=== PATIENT | male | born 1945 | race Caucasian/White ===

== ENCOUNTER 2017-04-10 20:35 | Inpatient (IN) ==
[2017-04-10] MEDS ORDERED: IOPAMIDOL 100 ML BOTTLE IJ ONE (20:36)
[2017-04-10] MEDS ORDERED: 0.9 % SODIUM CHLORIDE 1,000 ML IV ONE ×3 (20:45→22:35)
[2017-04-10] MEDS ORDERED: VANCOMYCIN 1,000 MG in 0.9 % SODIUM CHLORIDE 250 ML IV ONE (21:13)
[2017-04-10] MEDS ORDERED: LEVOFLOXACIN 500 MG/100 ML BAG IV ONE (21:13)
[2017-04-10 21:44] LABS: Basophils # (Auto) 0 K/mcL (0.0-0.3); Basophils % (Auto) 0.6 % (0.0-2.0); Eosinophils # (Auto) 0 K/mcL (0.0-0.7); Eosinophils % (Auto) 0.4 % (0.0-7.0); Granulocytes % (Auto) 60.7 % (38.0-78.0); Lymphocytes # (Auto) 1.2 K/mcL (1.5-4.8); Lymphocytes % (Auto) 22.8 % (15.5-49.0); Mean Corpuscular HGB Conc 33.4 g/dL (31.0-36.0); Mean Corpuscular Hemoglobin 28.7 pg (26.0-34.0); Monocytes # (Auto) 0.8 K/mcL (0.1-0.9); Monocytes % (Auto) 15.5 % (1.0-12.0); Platelet Count 157 K/mcL (140-440); RBC 4.85 M/mcL (4.50-5.90)
[2017-04-10 21:55] LABS: ALT/SGPT 40 U/l (0-40); Albumin/Globulin Ratio 1.2 (1.0-2.3); Alkaline Phosphatase 62 U/L (39-117); Blood Urea Nitrogen 24 mg/dl (8-23)
[2017-04-10] MEDS ORDERED: HYDROmorphone 2 MG/ML SYRINGE IV SCH (22:15)
[2017-04-10] MEDS ORDERED: HYDROmorphone 2 MG/ML SYRINGE ONE (22:15)
[2017-04-11] MEDS ORDERED: IPRATROPIUM/ALBUTEROL 3 ML AMPUL.NEB NEB ONE
--- NOTE | 2017-04-11 00:06 | Emergency Department Note ---
Fever HPI - General Chief Complaint: Fever Stated Complaint: Temp of 103.8 Time Seen by Provider: 04/10/17 20:39 Source: patient, family Mode of arrival: EMS Limitations: no limitations - History of Present Illness HPI Narrative: This 71-year-old male comes in via EMS with a couple day history of belly pain and "shakes". He notes a fever up to 104 this morning-103.8 here. Headache for the last 1-2 weeks. The belly pain started in [facility] yesterday- he went to [facility] ER in [place] last night where they diagnosed him with a fever nonspecifically and send him home. He is having some nausea with 2 episodes of vomiting tonight-once in the ambulance. Notes normal bowel movements but he is short of breath - Related Data Home Medications Medication Instructions Recorded Confirmed allopurinol 300 mg tablet 150 mg PO QDAY tab 04/03/15 12/08/16 amlodipine 10 mg tablet 10 mg PO QDAY tab 04/03/15 12/08/16 aspirin 81 mg tablet,delayed 81 mg PO QDAY tab 04/03/15 12/08/16 release cholecalciferol (vitamin D3) 1,000 1,000 unit PO QDAY cap 04/03/15 12/08/16 unit capsule clotrimazole-betamethasone 1 See Dose Instructions TOPICAL 04/03/15 12/08/16 %-0.05 % topical cream .COMPLEX g fluocinonide 0.05 % topical cream 1 applic TOPICAL BID PRN g 04/03/15 12/08/16 glipizide ER 10 mg tablet, 10 mg PO BID tab 04/03/15 12/08/16 extended release 24 hr insulin syringe-needle U-100 1 mL See Dose Instructions .ROUTE 04/03/15 12/08/16 31 gauge x 15/64" .MEDSUPPLY losartan 100 mg tablet 100 mg PO QDAY tab 04/03/15 12/08/16 metoprolol tartrate 50 mg tablet 50 mg PO .COMPLEX tab 04/03/15 12/08/16 tadalafil 20 mg tablet See Dose Instructions PO QDAY PRN 04/03/15 12/08/16 tab vit C 150 mg-vit E 30 unit-lutein 1 cap PO QDAY cap 04/03/15 12/08/16 5 dg-kqlrfyal-dwxdl 3 150 mg capsule zinc 50 mg tablet 50 mg PO .COMPLEX tab 04/03/15 12/08/16 hydrochlorothiazide 12.5 mg tablet 25 mg PO QDAY 07/28/16 12/08/16 omeprazole 20 mg capsule,delayed 20 mg PO QDAY cap 07/28/16 12/08/16 release Previous Rx's Medication Instructions Recorded diclofenac 1 % topical gel 2 g TOPICAL TID #100 g 05/17/15 nitroglycerin 0.4 mg sublingual 0.4 mg SUBLINGUAL Q5-15MIN PRN #20 12/12/15 tablet tab furosemide 80 mg tablet 80 mg PO QDAY 90 Days 11/02/16 Levemir 100 unit/mL subcutaneous 150 unit SUB-Q QPM #50 ml NS 01/27/17 solution metformin 1,000 mg tablet 1,000 mg PO BID 90 Days 02/09/17 Novolin 70/30 100 unit/mL 265 unit SUB-Q QAM #100 ml NS 03/30/17 subcutaneous suspension hydrocodone 10 mg-acetaminophen 1 tab PO QID PRN 28 Days 03/30/17 325 mg tablet Allergies Allergy/AdvReac Type Severity Reaction Status Date / Time Penicillins Allergy Mild RASH Verified 12/08/16 08:55 lisinopril [LISINOPRIL] AdvReac Mild COUGH Verified 12/08/16 08:55 Review of Systems All systems ED: reviewed and negative except as stated. Fever PMH - Past Medical History Attestation: Yes: The following information was validated with the patient. Medical history: Reports: coronary artery disease, diabetes, hyperlipidemia, hypertension, kidney stones, myocardial infarction, other (Chronic low back pain , gout) Surgical history ED: Reports: angioplasty/stent, appendectomy, orthopedic, other (Foot, shoulder, back) - Social History smoking status: Former smoker Alcohol use: Reports: Occasionally Physical Exam Very ill-appearing obese elderly male. Normocephalic atraumatic. Conjunctive are clear sclerae white and nonicteric. No nasal discharge or congestion. Oropharynx is pink and moist. Neck is supple without lymphadenopathy or thyromegaly. Heart is regular rate and rhythm no murmurs appreciated. Lungs are clear to auscultation bilaterally but he is taking short breaths-not gasping but hyperventilating. He is able to answer questions but is not speaking in full sentences. Abdomen is soft diffusely tender nondistended except for the left lower quadrant which is more tender than the rest. No pedal edema. Scars noted right foot from previous surgery. +2 radial pulse. + 2 posterior tibialis pulse. Anxious. Alert oriented - General Limitations: no limitations Course Vital Signs Temperature 103.8 F H 04/10/17 20:36 Pulse Rate 94 H 04/10/17 20:36 Respiratory Rate 22 04/10/17 20:36 Blood Pressure 144/63 04/10/17 20:36 Pulse Oximetry (%) 95 04/10/17 20:36 Temperature 103.8 F H 04/10/17 20:36 Pulse Rate 89 04/10/17 22:32 Respiratory Rate 21 04/10/17 22:32 Blood Pressure 141/66 04/10/17 22:32 Pulse Oximetry (%) 100 04/10/17 22:32 Fever - Lab Data Lab results reviewed: Yes I reviewed the patient's lab results. Result diagrams: 04/10/17 20:43 04/10/17 20:43 Lab Results 04/10/17 04/10/17 04/10/17 Range/Units 20:43 20:43 20:43 WBC 5.3 (4.5-11.0) K/mcL RBC 4.85 (4.50-5.90) M/mcL Hgb 13.9 (13.5-16.5) g/dL Hct 41.7 (41.0-55.0) % POC Hct (41.0-55.0) % MCV 86.0 (80.0-100.0) fL MCH 28.7 (26.0-34.0) pg MCHC 33.4 (31.0-36.0) g/dL RDW 15.0 H (11.5-14.5) % Plt Count 157 (140-440) K/mcL MPV 8.6 (7.4-10.4) fL Gran % 60.7 (38.0-78.0) % Lymph % (Auto) 22.8 (15.5-49.0) % Isabella % (Auto) 15.5 H (1.0-12.0) % Eos % (Auto) 0.4 (0.0-7.0) % Baso % (Auto) 0.6 (0.0-2.0) % Gran # 3.2 (1.8-8.0) K/mcL Lymph # (Auto) 1.2 L (1.5-4.8) K/mcL Isabella # (Auto) 0.8 (0.1-0.9) K/mcL Eos # (Auto) 0 (0.0-0.7) K/mcL Baso # (Auto) 0 (0.0-0.3) K/mcL VBG Lactic Acid 2.1 (0.5-2.2) mmol/L POC Sodium (133-145) mmol/L Sodium 132 L (133-145) mmol/L POC Potassium (3.3-5.1) mmol/L Potassium 4.1 (3.3-5.1) mmol/L POC Chloride (96-108) mmol/L Chloride 92 L (96-108) mmol/L Carbon Dioxide 27 (22-30) mmol/L POC Total CO2 (22-30) mmol/L Anion Gap 13.0 (8-16) POC BUN (8-23) mg/dl BUN 24 H (8-23) mg/dl Creatinine 1.4 H (0.7-1.2) mg/dl POC Creatinine (0.7-1.2) mg/dl GFR Calculation 51 Glucose 90 (70-105) mg/dL POC Glucose (70-105) mg/dL Calcium 8.7 (8.6-10.4) mg/dl POC WB Ioniz Calcium (1.16-1.32) mmol/L Total Bilirubin 1.0 (0.0-1.0) mg/dL AST 46 H (0-37) U/l ALT 40 (0-40) U/l Alkaline Phosphatase 62 (39-117) U/L Troponin T (0-0.03) ng/ml C-Reactive Protein (0.0-0.8) mg/dl Total Protein 7.3 (5.9-8.4) gm/dL Albumin 4.0 (3.2-5.2) gm/dL Globulin 3.3 (2.2-3.7) gm/dL Albumin/Globulin Ratio 1.2 (1.0-2.3) Lipase (7-60) U/L Procalcitonin (<0.10) ng/mL 0804/10/17 04/10/17 Range/Units 20:43 20:43 20:43 WBC (4.5-11.0) K/mcL RBC (4.50-5.90) M/mcL Hgb (13.5-16.5) g/dL Hct (41.0-55.0) % POC Hct (41.0-55.0) % MCV (80.0-100.0) fL MCH (26.0-34.0) pg MCHC (31.0-36.0) g/dL RDW (11.5-14.5) % Plt Count (140-440) K/mcL MPV (7.4-10.4) fL Gran % (38.0-78.0) % Lymph % (Auto) (15.5-49.0) % Isabella % (Auto) (1.0-12.0) % Eos % (Auto) (0.0-7.0) % Baso % (Auto) (0.0-2.0) % Gran # (1.8-8.0) K/mcL Lymph # (Auto) (1.5-4.8) K/mcL Isabella # (Auto) (0.1-0.9) K/mcL Eos # (Auto) (0.0-0.7) K/mcL Baso # (Auto) (0.0-0.3) K/mcL VBG Lactic Acid (0.5-2.2) mmol/L POC Sodium (133-145) mmol/L Sodium (133-145) mmol/L POC Potassium (3.3-5.1) mmol/L Potassium (3.3-5.1) mmol/L POC Chloride (96-108) mmol/L Chloride (96-108) mmol/L Carbon Dioxide (22-30) mmol/L POC Total CO2 (22-30) mmol/L Anion Gap (8-16) POC BUN (8-23) mg/dl BUN (8-23) mg/dl Creatinine (0.7-1.2) mg/dl POC Creatinine (0.7-1.2) mg/dl GFR Calculation Glucose (70-105) mg/dL POC Glucose (70-105) mg/dL Calcium (8.6-10.4) mg/dl POC WB Ioniz Calcium (1.16-1.32) mmol/L Total Bilirubin (0.0-1.0) mg/dL AST (0-37) U/l ALT (0-40) U/l Alkaline Phosphatase (39-117) U/L Troponin T < 0.01 (0-0.03) ng/ml C-Reactive Protein 9.0 H (0.0-0.8) mg/dl Total Protein (5.9-8.4) gm/dL Albumin (3.2-5.2) gm/dL Globulin (2.2-3.7) gm/dL Albumin/Globulin Ratio (1.0-2.3) Lipase 34 (7-60) U/L Procalcitonin 0.82 (<0.10) ng/mL 04/10/17 Range/Units 21:39 WBC (4.5-11.0) K/mcL RBC (4.50-5.90) M/mcL Hgb (13.5-16.5) g/dL Hct (41.0-55.0) % POC Hct 37.0 L (41.0-55.0) % MCV (80.0-100.0) fL MCH (26.0-34.0) pg MCHC (31.0-36.0) g/dL RDW (11.5-14.5) % Plt Count (140-440) K/mcL MPV (7.4-10.4) fL Gran % (38.0-78.0) % Lymph % (Auto) (15.5-49.0) % Isabella % (Auto) (1.0-12.0) % Eos % (Auto) (0.0-7.0) % Baso % (Auto) (0.0-2.0) % Gran # (1.8-8.0) K/mcL Lymph # (Auto) (1.5-4.8) K/mcL Isabella # (Auto) (0.1-0.9) K/mcL Eos # (Auto) (0.0-0.7) K/mcL Baso # (Auto) (0.0-0.3) K/mcL VBG Lactic Acid (0.5-2.2) mmol/L POC Sodium 135 (133-145) mmol/L Sodium (133-145) mmol/L POC Potassium 3.9 (3.3-5.1) mmol/L Potassium (3.3-5.1) mmol/L POC Chloride 97 (96-108) mmol/L Chloride (96-108) mmol/L Carbon Dioxide (22-30) mmol/L POC Total CO2 25 (22-30) mmol/L Anion Gap (8-16) POC BUN 24 H (8-23) mg/dl BUN (8-23) mg/dl Creatinine (0.7-1.2) mg/dl POC Creatinine 1.3 H (0.7-1.2) mg/dl GFR Calculation Glucose (70-105) mg/dL POC Glucose 95 (70-105) mg/dL Calcium (8.6-10.4) mg/dl POC WB Ioniz Calcium 1.01 L (1.16-1.32) mmol/L Total Bilirubin (0.0-1.0) mg/dL AST (0-37) U/l ALT (0-40) U/l Alkaline Phosphatase (39-117) U/L Troponin T (0-0.03) ng/ml C-Reactive Protein (0.0-0.8) mg/dl Total Protein (5.9-8.4) gm/dL Albumin (3.2-5.2) gm/dL Globulin (2.2-3.7) gm/dL Albumin/Globulin Ratio (1.0-2.3) Lipase (7-60) U/L Procalcitonin (<0.10) ng/mL - Radiology Data Radiology results reviewed: Yes I reviewed the patient's radiology results. Chest x-ray does not show any acute cardiopulmonary disease CT scan of the abdomen and pelvis with contrast shows diffuse enteritis on [facility] read - EKG Data EKG attestation: Yes I reviewed and interpreted this EKG. EKG results narrative: EKG shows a rate of 92 low voltage leads left axis deviation but otherwise normal sinus rhythm Disposition Pt seen by [facility]INGER [facility]AVER/PA only: No Clinical Impression: Enteritis Summary: Initial appearance of this patient was septic almost toxic appearance with high fever and hyperventilating. So, we ordered laboratory and started antibiotics, and studies. Fluid resuscitation was started as well CT scan showed enteritis which accounts for his GI symptoms and the fever. However it is not clear if this is viral or bacterial. His laboratory came back but does not corroborate with how ill he appears. I discussed his case with Dr. Montenegro the hospitalist who agreed to accept the patient for further inpatient care and workup Disposition: Xfer As Inpt ([facility]) Condition: Fair Referrals: Jeffery Meyer MD [Primary Care Provider] -
[2017-04-11] MEDS ORDERED: PIPERACILLIN SODIUM/TAZOBACTAM 3.375 GM VIAL IV ONE (00:56)
--- NOTE | 2017-04-11 01:03 | Internal Med History&Physical ---
Medical - H&P: HPI Patient information: Note initiated : 04/11/17 at 12:54 am Service Date, if different from initiated Date: [] Patient: Ranulfo Molina 71 y/o M admitted on for Temp of 103.8. Chief Complaint: [] History of present illness: Mr. Molina is a 71 year old Male with h/o DM, CAD and other medical issues presented to the ER today after not being well for nearly 10 days to 2 weeks. His at bedside The patient notes that he was at a family reunion and since that time he has not been feeling well, he has been fatigued and tired, having myalgia and poor appetite. The patient noticed some fever and chills going on from this wednesday, Fever is waxing and waning, associated with chills and rigors with some sweating , so much so that the patient is unable to perform his functions. He noted shortness of breath, nausea and abodminal pain which is associated with the fever. The patient denies any sick contacts, has chr cough, but no change in pattern, no urinary complaints. He was in [facility] yesterday where he was evaluated in the [facility] ER, he notes that they evaluated him and discharged him without any specific diagnosis. Today his fever was 103.5, he had taken some ibuprofen and tylenol today, and as his condition was worsening they brought him to the hospital. The patient notes that he helped a gentleman while on way to [place], and when he entere the house there was significant filt, including rat feces around. Patient denies touching any object and washed his hands with cholorx later. In the ER the patient was febrile, 103.5, he has normal WBC count, creat of 1.4 , baseilne is normal, he has elevated CRP and slightly elevated procalcitonin. He was admitted to the hospital for further management. He admits to some headaches, no changes in vision, no difficulty in hearing or swelling, he admits to shortness of breath and some cough. He has abdominal pain located in the left lower quadrant and periumbilical region. The patient has some nausea but has not vomited. he denies any bowel or bladder complaints. He has no joint pains but does admit to myalgias. The patient has no abnormal skin rashes. Denies any behavioral change., All systems: reviewed and no additional remarkable complaints except as stated ( as per HPI) Medical - H&P: H Medical history: Medical History (Last Updated 04/11/17 @ 00:06 by Giacomo Willett MD) Encounter for Health Maintenance Examination in Adult (Chronic) Right medial knee pain (Chronic) Testosterone deficiency (Chronic 10/13/12) Screening for prostate cancer (Chronic) Rib pain (Chronic) Renal mass (Chronic) Peripheral vascular disease (Chronic 07/08/13) Edema (Chronic) Generalized osteoarthrosis (Chronic 09/28/14) Nephrolithiasis (Chronic 07/08/13) Myocardial infarction acute (Chronic) Lumbago (Chronic) Low back pain (Chronic 07/08/13) Ischemic heart disease, chronic (Chronic 07/08/13) Impotence, 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) Hypertension, essential (Chronic) Hypercholesterolemia (Chronic) Gout (Chronic) Foot pain (Chronic) Erectile dysfunction (Chronic) Diabetes mellitus, type II (Chronic) Colon polyp (Chronic 09/28/14) Vascular claudication (Chronic) Chest pain (Chronic) CAD (coronary artery disease) (Chronic) 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) Abdominal pain, LUQ (Chronic) Disorder of kidney and ureter (Chronic) Surgical history: Past Surgical History (Last Updated 01/21/17 @ 14:32 by [employer] [place]) History of shoulder surgery (Chronic) Status post right foot surgery (Chronic) History of colonoscopy (Chronic 03/24/07) History of back surgery (Chronic) History of appendectomy (Chronic) History of penile implant (Acute) Pertinent family history: Family History Father Malignant neoplasm of colon Essential hypertension Unknown Diabetes mellitus Mother Essential hypertension Malignant neoplasm of kidney Other Family Members Essential hypertension Sister Migraine Medical - H&P: Meds Home Medications Medication Instructions Recorded Confirmed Type allopurinol 300 mg tablet 150 mg PO QDAY tab 04/03/15 12/08/16 History amlodipine 10 mg tablet 10 mg PO QDAY tab 04/03/15 12/08/16 History aspirin 81 mg tablet,delayed 81 mg PO QDAY tab 04/03/15 12/08/16 History release cholecalciferol (vitamin D3) 1,000 1,000 unit PO QDAY cap 04/03/15 12/08/16 History unit capsule clotrimazole-betamethasone 1 See Dose Instructions TOPICAL 04/03/15 12/08/16 History %-0.05 % topical cream .COMPLEX g fluocinonide 0.05 % topical cream 1 applic TOPICAL BID PRN g 04/03/15 12/08/16 History glipizide ER 10 mg tablet, 10 mg PO BID tab 04/03/15 12/08/16 History extended release 24 hr insulin syringe-needle U-100 1 mL See Dose Instructions .ROUTE 04/03/15 History 31 gauge x " .MEDSUPPLY losartan 100 mg tablet 100 mg PO QDAY tab 04/03/15 12/08/16 History metoprolol tartrate 50 mg tablet 50 mg PO .COMPLEX tab 04/03/15 12/08/16 History tadalafil 20 mg tablet See Dose Instructions PO QDAY PRN 04/03/15 12/08/16 History tab vit C 150 mg-vit E 30 unit-lutein 1 cap PO QDAY cap 04/03/15 12/08/16 History 5 lj-[id number]-safvl 3 150 mg capsule zinc 50 mg tablet 50 mg PO .COMPLEX tab 04/03/15 12/08/16 History diclofenac 1 % topical gel 2 g TOPICAL TID #100 g 05/17/15 12/08/16 Rx nitroglycerin 0.4 mg sublingual 0.4 mg SUBLINGUAL Q5-15MIN PRN #20 12/12/1512/21 Rx tablet tab hydrochlorothiazide 12.5 mg tablet 25 mg PO QDAY 07/28/16 12/08/16 History omeprazole 20 mg capsule,delayed 20 mg PO QDAY cap 07/28/16 12/08/16 History release furosemide 80 mg tablet 80 mg PO QDAY 90 Days 11/02/16 12/08/16 Rx Levemir 100 unit/mL subcutaneous 150 unit SUB-Q QPM #50 ml NS 01/27/17 Rx solution metformin 1,000 mg tablet 1,000 mg PO BID 90 Days 02/09/17 Rx Novolin 70/30 100 unit/mL 265 unit SUB-Q QAM #100 ml NS 03/30/17 Rx subcutaneous suspension hydrocodone 10 mg-acetaminophen 1 tab PO QID PRN 28 Days 03/30/17 Rx 325 mg tablet Allergies Allergy/AdvReac Type Severity Reaction Status Date / Time Penicillins Allergy Mild RASH Verified 12/08/16 08:55 lisinopril [LISINOPRIL] AdvReac Mild COUGH Verified 12/08/16 08:55 Medical - H&P: Exam - Constitutional Vitals: Temp Pulse Resp BP Pulse Ox 103.8 F H 89 21 141/66 100 04/10/17 20:36 04/10/17 22:32 04/10/17 22:32 04/10/17 22:32 04/10/17 22:32 Exam: GENERAL: The patient is a well-developed, well-nourished in mild distress but Is alert and oriented x3. VITAL SIGNS: Reviewed and as noted elsewhere. HEENT: Head is normocephalic and atraumatic. Extraocular muscles are intact. Pupils are equal, round, and reactive to light. Nares appeared normal. Mouth appears any without lesions. Mucous membranes are dry NECK: supple, back of the neck region is chr thickned lichen, the surrounding region and upper back has increased warmth and increased erythema and induration. there is no localized collection or tenderness in the back or neck region. LUNGS: Air entry equal on both sides, no wheezing, crackles or rhonchi noted. No accessory muscles of respiration HEART: Regular rate and rhythm normal, S1 and S2 heard, no Gallop, S3 or Rub Noted, No Gross murmur heard. ABDOMEN: Soft, mild diffuse tenderness and obese. Positive bowel sounds. No hepatosplenomegaly was noted. EXTREMITIES: No cyanosis, clubbing, rash, lesions or edema. NEUROLOGIC: Cranial nerves II through XII are grossly intact. Motor and Sensory System Grossly Intact PSYCHIATRIC: Normal affect, Normal Mood. Appropriate Behavior. SKIN: No ulceration or wounds noted, No jaundice, chr rash on left arm. . Medical - H&P: Reslt - Labs CBC & Chem 7: 04/10/17 20:43 04/10/17 20:43 Labs: Short CBC 04/10/17 Range/Units 20:43 WBC 5.3 (4.5-11.0) K/mcL Hgb 13.9 (13.5-16.5) g/dL Hct 41.7 (41.0-55.0) % Plt Count 157 (140-440) K/mcL BMP 04/10/17 20:43 Sodium 132 L Potassium 4.1 Chloride 92 L Carbon Dioxide 27 BUN 24 H Creatinine 1.4 H Glucose 90 Calcium 8.7 Cardiac Enzymes 04/10/17 Range/Units 20:43 Troponin T < 0.01 (0-0.03) ng/ml Liver Function 04/10/17 Range/Units 20:43 Total Bilirubin 1.0 (0.0-1.0) mg/dL AST 46 H (0-37) U/l ALT 40 (0-40) U/l Alkaline Phosphatase 62 (39-117) U/L Albumin 4.0 (3.2-5.2) gm/dL - Impressions CT scan abdomen pelvis, shows enterititis, as per [facility] read. CXR chest shows increased interstitial markings, official read pending. Medical - H&P: A/P - Narrative A/P Narrative: A/P Fever/ Sepsis/ Cellulitis/ Gastroenteritis: Etiology of fever is a bit unclear at this time, this could be viral fever, vs cellulitis of the neck, will treat the patient with vancomycin and zosyn to cover for skin infection. IV fluids, and treat underlying condition. Rodent exposure: Do not think zoonotic disease is likely given that symptoms started right after the exposure without any incubation period, if clinically worsens will reconsider and sent serologies for viral/ bacterial zoonotic disease. Acute Kidney Failure: Creat is 1.4, likely from poor oral intake, IV fluids for now, and monitor. Hold nephrotoxic meds, WES / metformin. DM: Patient insulin doses are very high on the med list, will keep him on sliding scale insulin (med protocol) for now and monitor and adjust glucose Renal cyst/ RCC noted on the CT abdomen and pelvis, incdental finding, outpatietn follow up with urology at discharge/ based on probl list it seems pcp is aware of same. CAD: h/o WI in the past, will resume his asa and statin once verified, will wait for patient to be more stable before resuming anti hypertensive meds. DVT heparin sq Diet Carb restricted Full code. Social History - Social History household members: significant other housing: house lives independently: Yes marital status: life partner occupational status: retired - Tobacco smoking status: Former smoker - Alcohol alcohol intake frequency: former alcohol drinker - Substance use substance use type: does not use
[2017-04-11] MEDS ORDERED: NALOXONE HCL 0.4 MG/ML VIAL IV PRN (01:34)
[2017-04-11] MEDS ORDERED: MAGNESIUM HYDROXIDE 30 ML ORAL.SUSP PO PRN (01:34)
[2017-04-11] MEDS ORDERED: DEXTROSE 50% 50 ML VIAL IV PRN (01:34)
[2017-04-11] MEDS ORDERED: oxyCODONE/APAP 5/325MG TABLET PO PRN (01:34)
[2017-04-11] MEDS ORDERED: DEXTROSE 31 GM ORAL.SUSP PO PRN (01:34)
[2017-04-11] MEDS ORDERED: VANCOMYCIN PER PHARMACY IV ONE (01:34)
[2017-04-11] MEDS ORDERED: ACETAMINOPHEN 325 MG TABLET PO ONE (01:37)
[2017-04-11] MEDS: IPRATROPIUM/ALBUTEROL 3 ML AMPUL.NEB NEB SCH ×4 (01:49→19:14)
[2017-04-11] MEDS: PIPERACILLIN SODIUM/TAZOBACTAM 3.375 GM in DEXTROSE 5% IN WATER 50 ML IV SCH ×5 (01:50→17:34)
[2017-04-11] MEDS ORDERED: ACETAMINOPHEN 1,000 MG/100 ML BOTTLE IV ONE (02:33)
[2017-04-11 03:53] LABS: Basophils # (Auto) 0 K/mcL (0.0-0.3); Basophils % (Auto) 0.7 % (0.0-2.0); Eosinophils # (Auto) 0 K/mcL (0.0-0.7); Eosinophils % (Auto) 0.3 % (0.0-7.0); Granulocytes % (Auto) 64.5 % (38.0-78.0); Lymphocytes # (Auto) 0.8 K/mcL (1.5-4.8); Lymphocytes % (Auto) 19.1 % (15.5-49.0); Mean Cell Volume 86.3 fL (80.0-100.0); Mean Corpuscular HGB Conc 33.6 g/dL (31.0-36.0); Monocytes # (Auto) 0.6 K/mcL (0.1-0.9); Monocytes % (Auto) 15.4 % (1.0-12.0); Platelet Count 134 K/mcL (140-440); Red Cell Distribution Width 14.9 % (11.5-14.5)
[2017-04-11 04:09] LABS: ALT/SGPT 35 U/l (0-40); Albumin 3.3 gm/dL (3.2-5.2); Albumin/Globulin Ratio 1.2 (1.0-2.3); Alkaline Phosphatase 52 U/L (39-117); Bilirubin,Direct 0.3 mg/dL (0.0-0.3); Blood Urea Nitrogen 23 mg/dl (8-23); Gamma Glutamyl Transpeptidase 76 U/L (8-61); Uric Acid 7.2 mg/dL (2.5-8.0)
[2017-04-11] MEDS: 0.9 % SODIUM CHLORIDE 1,000 ML IV SCH ×3 (05:18→23:17)
[2017-04-11] MEDS ORDERED: VANCOMYCIN PER PHARMACY IV SCH (07:15)
[2017-04-11] MEDS: ONDANSETRON 4 MG/2 ML VIAL IV PRN ×2 (08:15→17:34)
[2017-04-11] MEDS: INSULIN LISPRO 1 UNIT/0.01 ML UNIT SQ SCH ×5 (08:15→21:11)
[2017-04-11] MEDS: ACETAMINOPHEN 325 MG TABLET PO PRN ×2 (08:15→12:25)
[2017-04-11] MEDS: HEPARIN 5,000 UNIT/ML VIAL SQ SCH ×2 (08:19→21:11)
--- NOTE | 2017-04-11 08:36 | XRay Report ---
CLINICAL INFORMATION: Fever COMPARISON: 10/24/2014 FINDINGS: The heart is mildly enlarged - increased. Mediastinum shows slight widening. Pulmonary vessels are moderately distended. No definite edema Minor bibasilar atelectasis noted. No effusion IMPRESSION: 1. Mild CHF or volume overload 2. Mild bibasilar atelectasis Interpreted and Authenticated by: Aron Lundberg 04/11/17
[2017-04-11] MEDS: VANCOMYCIN 1,500 MG in 0.9 % SODIUM CHLORIDE 500 ML IV SCH ×2 (09:00→21:10)
[2017-04-11] MEDS ORDERED: FAMOTIDINE/PF 20 MG/2 ML VIAL IV SCH (09:00)
[2017-04-11] MEDS: DOXYCYCLINE 100 MG in DEXTROSE 5% IN WATER 100 ML IV SCH ×2 (11:19→23:21)
[2017-04-11] MEDS ORDERED: NITROGLYCERIN 0.4 MG TAB.SUBL SL PRN (13:11)
--- NOTE | 2017-04-11 18:38 | Cat Scan Report ---
CLINICAL INFORMATION: Fever COMPARISON: 03/26/2007 and 09/18/[address] TECHNIQUE: Following enteric contrast, 80 cc of Isovue-300 were injected intravenously, and 60 seconds later, 2.5 mm helical slices were obtained from the mid heart through the subtrochanteric regions. Following reconstruction, 2.5 mm sagittal, coronal and axial reformatted images were processed and reviewed at bone, lung and soft tissue windows. Five minutes later, 5 mm helical slices were obtained from the mid heart through the kidneys and viewed at soft tissue windows. FINDINGS: Lung bases show no abnormality. No effusion. The visualized heart is mildly enlarged. Images through the abdomen show the liver is mildly enlarged with diffuse fatty change. No focal hepatic lesions. The gallbladder and bile ducts are normal: CBD is 5 mm. Both kidneys, adrenal glands, pancreas and aorta, including aortic branches, are unremarkable. The spleen is moderately enlarged spanning 4.8 x 15 x 17 cm. It is increased since the 2006 study. A few mildly enlarged lymph nodes in the periduodenal, peripancreatic and james hepatis region has increased from 2006. They range up to 2.5 cm. There is no free fluid. Stomach, small and large bowel are unremarkable. (A few sigmoid diverticuli noted Images through the pelvis show penile implant and bulb. The bulb is located in the prevesical space which mildly impinges the urinary bladder. Bone windows show no focal osseous normality. There is moderate L5-S1 disc spur complex with results in moderate central canal, severe right and moderate left IV foraminal narrowing IMPRESSION: 1. Mild hepatosplenomegaly and mildly enlarged lymph nodes in the james hepatis, peripancreatic and periduodenal region. This is represents a change from the January [address] This could indicate inflammation or, less likely, a neoplastic process such as lymphoma. 2. Penile implant bulb in the prevesical space mildly compresses the anterior wall of the urinary bladder. Penile prostheses is otherwise normal. 3. 7 mm nonobstructing stone in the inferior calyx right kidney. 2.4 cm simple cyst inferior pole left kidney both stable Interpreted and Authenticated by: Aron Lundberg 04/11/17
[2017-04-11] MEDS ORDERED: PROMETHAZINE 50 MG/ML AMPUL IM PRN (18:46)
[2017-04-11] MEDS ORDERED: METOCLOPRAMIDE 10 MG/2 ML VIAL IV PRN (18:48)
[2017-04-11] MEDS ORDERED: METOCLOPRAMIDE 10 MG/2 ML VIAL ONE (19:04)
[2017-04-11] MEDS: PANTOPRAZOLE 40 MG VIAL IV SCH (19:17)
[2017-04-11] MEDS ORDERED: PANTOPRAZOLE 40 MG VIAL IV ONE (19:19)
[2017-04-11] MEDS ORDERED: HYDROmorphone 2 MG/ML SYRINGE ONE (21:06)
[2017-04-11] MEDS: ACETAMINOPHEN 1,000 MG/100 ML BOTTLE IV SCH ×2 (21:10→22:25)
[2017-04-11] MEDS: MAGNESIUM OXIDE 400 MG TABLET PO SCH (21:12)
[2017-04-11] MEDS: HYDROmorphone 2 MG/ML SYRINGE IV PRN (21:12)
[2017-04-11] MEDS: ALPHA LIPOIC ACID 200 MG PO SCH (21:16)
[2017-04-12] MEDS: PIPERACILLIN SODIUM/TAZOBACTAM 3.375 GM in DEXTROSE 5% IN WATER 50 ML IV SCH ×4 (00:41→17:18)
[2017-04-12] MEDS: IPRATROPIUM/ALBUTEROL 3 ML AMPUL.NEB NEB SCH ×4 (01:29→20:29)
[2017-04-12] MEDS ORDERED: HYDROmorphone 2 MG/ML SYRINGE ONE (02:29)
[2017-04-12] MEDS ORDERED: ACETAMINOPHEN 1,000 MG/100 ML BOTTLE IV PRN (04:00)
[2017-04-12] MEDS ORDERED: 0.9 % SODIUM CHLORIDE 500 ML IV ONE (04:15)
[2017-04-12] MEDS ORDERED: IPRATROPIUM/ALBUTEROL 3 ML AMPUL.NEB NEB ONE ×3 (04:15→15:33)
[2017-04-12] MEDS ORDERED: METOPROLOL TARTRATE 5 MG/5 ML VIAL IV ONE ×3 (05:42→21:32)
[2017-04-12 06:19] LABS: Appearance,Urine CLEAR; Bacteria,Urine 0 /hpf (0); Bilirubin,Urine NEG (NEG); Color,Urine YELLOW; Glucose,Urine (UA) NEGATIVE (NEG); Leukocyte Esterase,Urine NEG /uL (NEG); Nitrate,Urine NEG (NEG); Protein,Urine NEG (NEG); Specific Gravity,Urine 1.014 (1.000-1.035); Urine Blood NEG mg/dL (<0.03); Urine RBC 2 /hpf (0-1); Urine Squamous Epithelial Cell < 1 /hpf (0-4); Urine Transitional Epi Cells < 1 /hpf (0-2); Urine WBC < 1 /hpf (0-4); Urobilinogen,Urine NEG (NEG)
--- NOTE | 2017-04-12 07:06 | XRay Report ---
CLINICAL INFORMATION: Shortness of breath COMPARISON: 04/10/2017 FINDINGS: The heart is mildly enlarged - decreased. Mediastinum is unremarkable. Pulmonary vessels have returned to normal in caliber. There is no edema. There is minimal bibasilar airspace disease is unchanged and likely atelectasis. No effusion IMPRESSION: Interval resolution CHF. Minor bibasilar atelectasis - unchanged Interpreted and Authenticated by: Aron Lundberg 04/12/17
[2017-04-12] MEDS ORDERED: OMEPRAZOLE 20 MG CAPSULE PO SCH (07:30)
[2017-04-12 07:52] LABS: Basophils # (Auto) 0 K/mcL (0.0-0.3); Basophils % (Auto) 0.5 % (0.0-2.0); Eosinophils # (Auto) 0 K/mcL (0.0-0.7); Eosinophils % (Auto) 0.4 % (0.0-7.0); Granulocytes % (Auto) 77.7 % (38.0-78.0); Lymphocytes # (Auto) 0.6 K/mcL (1.5-4.8); Lymphocytes % (Auto) 10.7 % (15.5-49.0); Mean Cell Volume 86.2 fL (80.0-100.0); Mean Corpuscular Hemoglobin 29.3 pg (26.0-34.0); Monocytes # (Auto) 0.6 K/mcL (0.1-0.9); Monocytes % (Auto) 10.7 % (1.0-12.0); Platelet Count 126 K/mcL (140-440); RBC 4.06 M/mcL (4.50-5.90); Red Cell Distribution Width 15.1 % (11.5-14.5)
--- NOTE | 2017-04-12 08:00 | Internal Med Progress Note ---
Medical - PN: Subj Patient information: Note initiated : 04/12/17 at 7:58 am Service Date, if different from initiated Date: [] Patient: Ranulfo Molina 71 y/o M admitted on 04/11/17 for Temp of 103.8. Chief Complaint: [] Interval history: Mr. Molina is a 71 year old Male with h/o DM, CAD and other medical issues presented to the ER today after not being well for nearly 10 days to 2 weeks. His at bedside The patient notes that he was at a family reunion and since that time he has not been feeling well, he has been fatigued and tired, having myalgia and poor appetite. The patient noticed some fever and chills going on from this wednesday, Fever is waxing and waning, associated with chills and rigors with some sweating , so much so that the patient is unable to perform his functions. He noted shortness of breath, nausea and abodminal pain which is associated with the fever. The patient denies any sick contacts, has chr cough, but no change in pattern, no urinary complaints. He was in [facility] yesterday where he was evaluated in the [facility] ER, he notes that they evaluated him and discharged him without any specific diagnosis. Today his fever was 103.5, he had taken some ibuprofen and tylenol today, and as his condition was worsening they brought him to the hospital. The patient notes that he helped a gentleman while on way to [place], and when he entered the house there was significant filt, including rat feces around. Patient denies touching any object and washed his hands with cholorx later. In the ER the patient was febrile, 103.5, he has normal WBC count, creat of 1.4 , baseline is normal, he has elevated CRP and slightly elevated procalcitonin. He was admitted to the hospital for further management. He admits to some headaches, no changes in vision, no difficulty in hearing or swelling, he admits to shortness of breath and some cough. He has abdominal pain located in the left lower quadrant and periumbilical region. The patient has some nausea but has not vomited. he denies any bowel or bladder complaints. He has no joint pains but does admit to myalgias. The patient has no abnormal skin rashes. Denies any behavioral change. 04/12: Patient seen examined this AM, patient continues to be febrile, weak and intermittently short of breath. he has cough, but no other symptoms, His lab work is unremarkable so far. Early this AM he went in Afib with RVR. CXR shows resolved CHF. The Patient history reviewed, his partner notes that he may have eaten a meat ball fallen on the ground on the day of family reunion. The patient thinks that the fever started 24 hrs after the exposure to the house with rodents. The patient lab workup has been sent for JERED, ANCA, c3,c4, leptospirosis dna pcr , Hanta virus, ricketsia dNA, blood culture was positive for GPC in one bottle, Patient continues to be on vanco and zosyn, Doxy added yesterday. Etiology of patients present condition so far unknown, infectious, viral, zoonotic vs autoimmue possibility. continue workup. He is a bit short of breath this AM, but has no wheezing, oxygen saturation is good, Pertinent ROS: intermittent headache, No dizziness Denies chest pain, palpitations Prsent cough and shortness of breath Denies abdominal pain, nausea or vomiting. Additional PMFSH (Level 3 Only): reviewed - Constitutional Vitals: Vital Signs Temp Pulse Resp BP Pulse Ox 99.2 F H 93 H 24 H 83/44 95 04/12/17 00:00 04/11/17 19:24 04/12/17 06:01 04/12/17 06:01 04/12/17 06:01 Period Temp Pulse Resp BP Sys/Rebolledo Pulse Ox Last 24 Hr 98 F-104.0 F 90-93 18-28 83-148/44-90 36-98 Intake and Output 04/11/17 04/12/17 04/12/17 21:59 05:59 13:59 Intake Total 1780 / 1780 1886 / 1886 Output Total 400 / 400 750 / 750 450 / 450 Balance 1380 / 1380 1137 / 1137 -450 / -450 Weight 308 lb 4.8 oz Intake & Output: Intake & Output 04/11/17 04/12/17 04/12/17 21:59 05:59 13:59 Intake Total 1780 / 1780 1886 / 188 Output Total 400 / 400 750 / 750 450 / 450 Balance 1380 / 1380 1137 / 1137 -450 / -450 Weight 308 lb 4.8 oz Intake: IV 1600 / 1600 947 / 947 Sodium Chloride 0.9% 1, 1000 / 1000 797 / 797 000 ml @ 100 mls/hr IV . Q10H [facility] Rx#:[id number] Zosyn 3.375 gm In 100 / 100 50 / 50 Dextrose 5% in Water 50 ml @ 100 mls/hr IV Q6H [facility] Rx#:[id number] Vancomycin 1,500 mg In 500 / 500 Sodium Chloride 0.9% 500 ml @ 333.3 mls/hr IV Q12H AL[facility] Rx#:[id number] Oral 180 / 180 940 / 940 Output: Urine Catheter Amount 450 / 450 Void Amount 400 / 400 750 / 750 Other: # Voids 1 Exam: Constitutional; Febrile, in mild distress, alert. Eyes- No icterus, , No periorbital swelling Ears- Ext ear normal, hearing normal to conversation. Neck- Midline trachea, supple Respiratory system: Air Entry equal on both sides, No crackles or wheezing, no rhonchi. indira decreased breath sounds noted. CVS- Rate tachycardic rhythm irregular, S1,S2 heard, no gallop, no rub. Abdomen- Soft nontender abdomen, no organomegaly, no tenderness, no guarding or rigidity, [employer]- AOOx3, moving all extremities, no gross focal deficit noted. Medical - PN: Obj Da - Labs CBC & Chem 7: 04/12/17 06:19 04/11/17 03:10 Labs: Abnormal Lab Results 04/12/17 04/11/17 04/11/17 06:19 03:10 03:10 WBC 4.0 L RBC 4.06 L 4.00 L Hgb 11.9 L 11.6 L Hct 35.0 L 34.5 L RDW 15.1 H 14.9 H Plt Count 126 L 134 L Lymph % (Auto) 10.7 L [place] % (Auto) 15.4 H Lymph # (Auto) 0.6 L 0.8 L Creatinine 1.3 H Glucose 110 H Calcium 7.5 L Phosphorus 2.2 L GGT 76 H AST 43 H Urine RBC 04/11/17 02:20 WBC RBC Hgb Hct RDW Plt Count Lymph % (Auto) [place] % (Auto) Lymph # (Auto) Creatinine Glucose Calcium Phosphorus GGT AST Urine RBC 2 H Meds: Medications Acetaminophen (Tylenol) 650 mg PO Q6HP PRN PRN Reason: PAIN/FEVER > 101 Last Admin: 04/11/17 12:25 Dose: 650 mg Albuterol/Ipratropium (Duoneb) 3 ml NEB Q6HRT [facility] Last Admin: 04/12/17 01:29 Dose: 3 ml Allopurinol (Zyloprim) 150 mg PO DAILY [facility] Aspirin (Aspirin) 81 mg PO DAILY [facility] Atorvastatin Calcium (Lipitor) 40 mg PO DAILY [facility] Dextrose (Dextrose 50%) 0 ml IV UD PRN PRN Reason: Hypoglycemia Diagnostic Test (Pha) (Accu-Chek) 1 each FS ACHS [facility] Last Admin: 04/11/17 21:08 Dose: 1 each Glucose (Insta-Glucose) 15 gm PO PRN PRN PRN Reason: Hypoglycemia Heparin Sodium (Porcine) (Heparin) 5,000 unit SQ Q12 [facility] Last Admin: 04/11/17 21:11 Dose: 5,000 unit Hydromorphone HCl (Dilaudid) 1 mg IV Q4HP PRN PRN Reason: Pain Last Admin: 04/11/17 21:12 Dose: 1 mg Piperacillin Sod/Tazobactam (Sod 3.375 gm/ Dextrose) 50 mls @ 100 mls/hr IV Q6H [facility] Last Admin: 04/12/17 05:48 Dose: 100 mls/hr Vancomycin HCl 1,500 mg/ (Sodium Chloride) 500 mls @ 333.3 mls/hr IV Q12H [facility] Last Admin: 04/11/17 21:10 Dose: 333 mls/hr Doxycycline Hyclate 100 mg/ (Dextrose) 100 mls @ 100 mls/hr IV Q12H [facility] Last Admin: 04/11/17 23:21 Dose: 100 mls/hr Acetaminophen (Ofirmev) 1,000 mg in 100 mls @ 200 mls/hr IV Q6HP PRN PRN Reason: PAIN/FEVER > 101 Insulin Human Lispro (Humalog) 0 unit SQ ACHS [facility] PRN Reason: Protocol Last Admin: 04/11/17 21:11 Dose: 6 unit Magnesium Hydroxide (Milk Of Magnesia) 30 ml PO DAILYP PRN PRN Reason: Constipation Magnesium Oxide (Magnesium Oxide) 400 mg PO HS [facility] Last Admin: 04/11/17 21:12 Dose: 400 mg Metoclopramide HCl (Reglan) 5 mg IV Q6HP PRN PRN Reason: Nausea And Vomiting Naloxone HCl (Narcan) 0.1 mg IV Q2MIN PRN PRN Reason: Opiate Reversal Nitroglycerin (Nitrostat) 0.4 mg SL Q5MINP PRN PRN Reason: Chest Pain Omeprazole (Prilosec) 20 mg PO ACB [facility] Ondansetron HCl (Zofran) 4 mg IV Q4HP PRN PRN Reason: Nausea And Vomiting Last Admin: 04/11/17 17:34 Dose: 4 mg Pantoprazole Sodium (Protonix) 40 mg IV BIDAC [facility] Last Admin: 04/11/17 19:17 Dose: 40 mg Alpha Lipoic Acid (200 Mg Capsule) 1 dose PO HS [facility] Last Admin: 04/11/17 21:16 Dose: Not Given Vancomycin HCl (Vancomycin Per Pharmacy) 1 order IV UD [facility] Vitamin D (Vitamin D3) 1,000 unit PO DAILY [facility] Medical - PN: A/P - Time Spent With Patient Total time spent is greater than 50% in coordination of care (as documented) at patient's floor/unit and/or counseling patient: - Narrative A/P Narrative: A/P Fever/ Sepsis/ Cellulitis/ Gastroenteritis: Etiology of fever is a bit unclear at this time, this could be viral fever, vs cellulitis of the neck, zoonotic disease vs Autoimmue process. On vancomycin, zosyn and doxy. LP today, Autoimmune workup sent. MOnitor closely. IV tylenol for fever, this seems to break the fever for short while. consider CT chest if LP is negative. Afib with RVR: No h/o afib in past, was on beta blockers which were held during this admission, IV metoprolol for now, likely in Afib due to sepsis. Get Echo. Rodent exposure: Leptospirosis and hanta virus sent, rickettsia dna probe ordered. On doxycycline Acute Kidney Failure: Creat is 1.3, stable monitor, hold IVF for now. Hold nephrotoxic meds, WES / metformin. DM: Patient insulin doses are very high on the med list, presently on med prot sliding scale insulin, Glucose at goal, continue rakan.e Renal cyst/ RCC noted on the CT abdomen and pelvis, incdental finding, outpatietn follow up with urology at discharge/ based on probl list it seems pcp is aware of same. CAD: h/o MO in the past, will resume his asa and statin once verified, will wait for patient to be more stable before resuming anti hypertensive meds. DVT heparin sq Diet Carb restricted Full code. Medical - PN: Qual - VTE Deep Vein Thrombosis/Pulmonary Embolism Present on Admission: No
[2017-04-12] MEDS: INSULIN LISPRO 1 UNIT/0.01 ML UNIT SQ SCH ×4 (08:05→21:23)
[2017-04-12] MEDS: HEPARIN 5,000 UNIT/ML VIAL SQ SCH ×2 (08:08→21:23)
[2017-04-12] MEDS: ASPIRIN 81 MG TAB.CHEW PO SCH (08:09)
--- NOTE | 2017-04-12 08:09 | XRay Report ---
CLINICAL INFORMATION: PICC position COMPARISON: 04/12/2017. FINDINGS: PICC line tip overlies the SVC right/ atrial junction. The heart is mildly enlarged. Mediastinum is unremarkable. Pulmonary vessels are mildly distended and there is mild perihilar edema. Minor bibasilar atelectasis noted. No effusion IMPRESSION: Mild CHF or volume overload. PICC line satisfactory position Interpreted and Authenticated by: Aron Lundberg 04/12/17
[2017-04-12 08:11] LABS: Erythrocyte Sedimentation Rate 44 mm/hr (0-15)
[2017-04-12] MEDS: METOPROLOL TARTRATE 5 MG/5 ML VIAL IV SCH ×6 (08:11→21:57)
[2017-04-12] MEDS: PANTOPRAZOLE 40 MG VIAL IV SCH ×2 (08:39→17:18)
[2017-04-12] MEDS: ALLOPURINOL 100 MG TABLET PO SCH (08:40)
[2017-04-12] MEDS: ATORVASTATIN 20 MG TABLET PO SCH (08:48)
[2017-04-12] MEDS: VANCOMYCIN 1,500 MG in 0.9 % SODIUM CHLORIDE 500 ML IV SCH ×2 (10:18→21:23)
[2017-04-12 10:24] LABS: ALT/SGPT 40 U/l (0-40); Albumin 3.2 gm/dL (3.2-5.2); Albumin/Globulin Ratio 1.1 (1.0-2.3); Alkaline Phosphatase 47 U/L (39-117); Bilirubin,Direct 0.3 mg/dL (0.0-0.3); Blood Urea Nitrogen 17 mg/dl (8-23); C-Reactive Protein 9.9 mg/dl (0.0-0.8); Gamma Glutamyl Transpeptidase 80 U/L (8-61)
[2017-04-12 10:26] LABS: Complement C3 133.3 mg/dl (90-180)
[2017-04-12] MEDS: HYDROmorphone 2 MG/ML SYRINGE IV PRN ×3 (10:49→20:19)
[2017-04-12] MEDS ORDERED: POTASSIUM PHOSPHATE 40 MEQ in DEXTROSE 5% IN WATER 500 ML IV ONE (10:53)
[2017-04-12] MEDS: VITAMIN D3 1,000 UNIT TABLET PO SCH (11:00)
[2017-04-12] MEDS: DOXYCYCLINE 100 MG in DEXTROSE 5% IN WATER 100 ML IV SCH ×2 (11:02→21:23)
--- NOTE | 2017-04-12 12:56 | XRay Report ---
CLINICAL INFORMATION: Fever evaluate for meningitis. TECHNIQUE: The procedure and risks including possibility of bleeding, infection and CSF leak causing spinal headache possible requiring blood patch were explained to the patient. He understood and wished to proceed. With the patient prone on the fluoroscopy table, the skin overlying the left L2 interlaminar space was fluoroscopically marked, prepped and anesthetized 1% lidocaine using a 25-gauge needle. A 22-gauge spinal needle was then placed under fluoroscopic guidance into the thecal sac. Approximately 9 cc of clear CSF was aspirated and sent for requested studies. Needle was then removed. No apparent complications. Patient tolerated procedure well. IMPRESSION: Successful fluoroscopic guided lumbar puncture yielding 9 cc of clear CSF. No apparent complication Interpreted and Authenticated by: Aron Lundberg 04/12/17
[2017-04-12] MEDS ORDERED: 0.9 % SODIUM CHLORIDE 1,000 ML IV SCH (13:15)
[2017-04-12] MEDS: ACETAMINOPHEN 325 MG TABLET PO PRN (13:24)
[2017-04-12 13:25] LABS: Glucose,CSF 98 mg/dL (45-75)
[2017-04-12] MEDS: ACETYLCYSTEINE 800 MG/4 ML VIAL PO SCH ×2 (13:58→21:24)
[2017-04-12 14:39] LABS: Appearance,CSF CLEAR; Nucleated Cells,CSF 9 /cumm (0-5); Red Blood Cell,CSF 388 /cumm (0-1)
[2017-04-12 14:49] LABS: Lymphocytes,CSF 54 % (40-80); Monocytes,CSF 28 % (15-45); Neutrophils,CSF 14 % (0-6); Total Cell Ct,CSF 100
[2017-04-12] MEDS ORDERED: methylPREDNISolone SOD SUCC 125 MG/2 ML VIAL IV ONE (15:31)
[2017-04-12] MEDS ORDERED: methylPREDNISolone SOD SUCC 125 MG/2 ML VIAL ONE (15:32)
[2017-04-12] MEDS ORDERED: TERBUTALINE 1 MG/ML VIAL SQ ONE (15:47)
[2017-04-12] MEDS ORDERED: MAGNESIUM SULFATE 2 GM/50 ML BAG IV ONE (15:47)
[2017-04-12 16:30] LABS: Mean Cell Volume 86.3 fL (80.0-100.0); Mean Corpuscular HGB Conc 33.2 g/dL (31.0-36.0); Mean Corpuscular Hemoglobin 28.6 pg (26.0-34.0); Platelet Count 167 K/mcL (140-440); RBC 4.07 M/mcL (4.50-5.90); Red Cell Distribution Width 15.4 % (11.5-14.5)
[2017-04-12 16:36] LABS: Appearance,Urine CLOUDY; Bacteria,Urine 0 /hpf (0); Bilirubin,Urine NEG (NEG); Color,Urine YELLOW; Glucose,Urine (UA) >=500 mg/dL (NEG); Leukocyte Esterase,Urine NEG /uL (NEG); Nitrate,Urine NEG (NEG); Protein,Urine 100 mg/dL (NEG); Specific Gravity,Urine 1.027 (1.000-1.035); Urine Blood >=1.0 mg/dL (<0.03); Urine RBC > 182 /hpf (0-1); Urine Squamous Epithelial Cell 0 /hpf (0-4); Urine WBC 5 /hpf (0-4)
--- NOTE | 2017-04-12 16:46 | XRay Report ---
CLINICAL INFORMATION: Shortness of breath COMPARISON: Portable chest x-ray from 07/25/2009 (baseline) and 04/12/2017 FINDINGS: The heart is moderately enlarged - slightly increased. Slight mediastinal widening noted. The pulmonary vessels are moderately congested with peribronchial vascular edema. This has progressed. Mild basilar airspace disease has progressed in either represents atelectasis or developing infiltrate. Small bilateral pleural effusions noted. PICC line tip is in satisfactory position overlying the SVC right atrial junction IMPRESSION: 1. Moderate CHF - worsening 2. Mild bibasilar airspace disease worsening atelectasis versus developing infiltrate. Interpreted and Authenticated by: Aron Lundberg 04/12/17
[2017-04-12] MEDS ORDERED: DILTIAZEM 25 MG/5 ML VIAL IV ONE ×4 (16:47→18:53)
[2017-04-12 16:56] LABS: Band Neutrophils % 10 % (0-10); Eosinophils % (Manual) 1 % (0-7); Lymphocytes % 17 % (15-49); Monocytes % (Manual) 12 % (1-12); Platelet Estimate NORMAL (NORMAL); RBC Morphology NORMAL (NORMAL); Segmented Neutrophils % 60 % (38-78)
[2017-04-12 18:10] LABS: ALT/SGPT 46 U/l (0-40); Albumin 3.4 gm/dL (3.2-5.2); Albumin/Globulin Ratio 1.1 (1.0-2.3); Alkaline Phosphatase 55 U/L (39-117); Bilirubin,Direct 0.4 mg/dL (0.0-0.3); Blood Urea Nitrogen 18 mg/dl (8-23); Gamma Glutamyl Transpeptidase 82 U/L (8-61); Magnesium 2.3 mg/dL (1.6-2.5); Uric Acid 4.6 mg/dL (2.5-8.0)
[2017-04-12 18:50] LABS: Creatine Kinase 976 IU/L (24-195)
[2017-04-12] MEDS ORDERED: IOPAMIDOL 100 ML BOTTLE IV ONE (20:18)
[2017-04-12] MEDS ORDERED: ACETAMINOPHEN 1,000 MG/100 ML BOTTLE IV ONE (21:23)
[2017-04-12] MEDS: MAGNESIUM OXIDE 400 MG TABLET PO SCH (21:23)
[2017-04-12] MEDS: ALPHA LIPOIC ACID 200 MG PO SCH (21:51)
[2017-04-12] MEDS: methylPREDNISolone SOD SUCC 125 MG/2 ML VIAL IV SCH (23:01)
[2017-04-13] MEDS: PIPERACILLIN SODIUM/TAZOBACTAM 3.375 GM in DEXTROSE 5% IN WATER 50 ML IV SCH ×5 (00:36→23:49)
[2017-04-13] MEDS: IPRATROPIUM/ALBUTEROL 3 ML AMPUL.NEB NEB SCH ×4 (01:01→19:51)
[2017-04-13] MEDS: HYDROmorphone 2 MG/ML SYRINGE IV PRN ×5 (01:13→18:02)
[2017-04-13] MEDS: methylPREDNISolone SOD SUCC 125 MG/2 ML VIAL IV SCH ×2 (05:31→14:13)
[2017-04-13 05:53] LABS: Basophils # (Auto) 0 K/mcL (0.0-0.3); Basophils % (Auto) 0.2 % (0.0-2.0); Eosinophils # (Auto) 0 K/mcL (0.0-0.7); Eosinophils % (Auto) 0.2 % (0.0-7.0); Granulocytes % (Auto) 86.5 % (38.0-78.0); Lymphocytes # (Auto) 0.6 K/mcL (1.5-4.8); Mean Cell Volume 86.4 fL (80.0-100.0); Mean Corpuscular HGB Conc 33.5 g/dL (31.0-36.0); Mean Corpuscular Hemoglobin 28.9 pg (26.0-34.0); Monocytes # (Auto) 0.1 K/mcL (0.1-0.9); Monocytes % (Auto) 2.1 % (1.0-12.0); Platelet Count 117 K/mcL (140-440); RBC 4.01 M/mcL (4.50-5.90)
[2017-04-13 06:13] LABS: ALT/SGPT 46 U/l (0-40); Albumin 3.4 gm/dL (3.2-5.2); Albumin/Globulin Ratio 1.2 (1.0-2.3); Alkaline Phosphatase 50 U/L (39-117); Bilirubin,Direct 0.3 mg/dL (0.0-0.3); Blood Urea Nitrogen 19 mg/dl (8-23); Gamma Glutamyl Transpeptidase 76 U/L (8-61); Magnesium 2.7 mg/dL (1.6-2.5); Uric Acid 4.5 mg/dL (2.5-8.0)
[2017-04-13] MEDS: PANTOPRAZOLE 40 MG VIAL IV SCH ×2 (07:22→17:41)
[2017-04-13] MEDS ORDERED: FUROSEMIDE 40 MG/4 ML VIAL IV ONE (07:25)
[2017-04-13] MEDS: INSULIN LISPRO 1 UNIT/0.01 ML UNIT SQ SCH ×5 (07:43→21:07)
[2017-04-13] MEDS ORDERED: METOPROLOL TARTRATE 50 MG TABLET PO SCH (09:00)
[2017-04-13] MEDS: ENOXAPARIN 30 MG/0.3 ML SYRINGE SQ SCH ×2 (09:17→20:29)
[2017-04-13] MEDS: ACETYLCYSTEINE 800 MG/4 ML VIAL PO SCH ×2 (09:18→20:30)
[2017-04-13] MEDS: amLODIPine 10 MG TABLET PO SCH (09:19)
[2017-04-13] MEDS: VITAMIN D3 1,000 UNIT TABLET PO SCH (09:19)
[2017-04-13] MEDS: ALLOPURINOL 100 MG TABLET PO SCH (09:19)
[2017-04-13] MEDS: ATORVASTATIN 20 MG TABLET PO SCH ×2 (09:19→13:13)
[2017-04-13] MEDS: ASPIRIN 81 MG TAB.CHEW PO SCH (09:20)
[2017-04-13] MEDS: FUROSEMIDE 80 MG TABLET PO SCH (09:20)
[2017-04-13] MEDS: VANCOMYCIN 1,500 MG in 0.9 % SODIUM CHLORIDE 500 ML IV SCH ×2 (09:56→20:30)
[2017-04-13] MEDS: DOXYCYCLINE 100 MG in DEXTROSE 5% IN WATER 100 ML IV SCH (09:59)
[2017-04-13] MEDS: DOXYCYCLINE HYCLATE 100 MG TABLET.ORL PO SCH ×2 (11:47→20:29)
--- NOTE | 2017-04-13 16:47 | Internal Med Progress Note ---
Medical - PN: Subj Patient information: Note initiated : 04/13/17 at 4:30 pm Service Date, if different from initiated Date: [] Patient: Ranulfo Molina 71 y/o M admitted on 04/11/17 for Fever, Sepsis, Cellulitis, Gastroenteritis. Chief Complaint: [] Interval history: Mr. Molina is a 71 year old Male with h/o DM, CAD and other medical issues presented to the ER today after not being well for nearly 10 days to 2 weeks. His at bedside The patient notes that he was at a family reunion and since that time he has not been feeling well, he has been fatigued and tired, having myalgia and poor appetite. The patient noticed some fever and chills going on from this wednesday, Fever is waxing and waning, associated with chills and rigors with some sweating , so much so that the patient is unable to perform his functions. He noted shortness of breath, nausea and abodminal pain which is associated with the fever. The patient denies any sick contacts, has chr cough, but no change in pattern, no urinary complaints. He was in [facility] yesterday where he was evaluated in the [facility] ER, he notes that they evaluated him and discharged him without any specific diagnosis. Today his fever was 103.5, he had taken some ibuprofen and tylenol today, and as his condition was worsening they brought him to the hospital. The patient notes that he helped a gentleman while on way to [place], and when he entered the house there was significant filt, including rat feces around. Patient denies touching any object and washed his hands with cholorx later. In the ER the patient was febrile, 103.5, he has normal WBC count, creat of 1.4 , baseline is normal, he has elevated CRP and slightly elevated procalcitonin. He was admitted to the hospital for further management. He admits to some headaches, no changes in vision, no difficulty in hearing or swelling, he admits to shortness of breath and some cough. He has abdominal pain located in the left lower quadrant and periumbilical region. The patient has some nausea but has not vomited. he denies any bowel or bladder complaints. He has no joint pains but does admit to myalgias. The patient has no abnormal skin rashes. Denies any behavioral change. 04/12: Patient seen examined this AM, patient continues to be febrile, weak and intermittently short of breath. he has cough, but no other symptoms, His lab work is unremarkable so far. Early this AM he went in Afib with RVR. CXR shows resolved CHF. The Patient history reviewed, his partner notes that he may have eaten a meat ball fallen on the ground on the day of family reunion. The patient thinks that the fever started 24 hrs after the exposure to the house with rodents. The patient lab workup has been sent for JERED, ANCA, c3,c4, leptospirosis dna pcr , Hanta virus, ricketsia dNA, blood culture was positive for GPC in one bottle, Patient continues to be on vanco and zosyn, Doxy added yesterday. Etiology of patients present condition so far unknown, infectious, viral, zoonotic vs autoimmue possibility. continue workup. He is a bit short of breath this AM, but has no wheezing, oxygen saturation is good, 04/13: Pt seen examined, overnight issues reviewed, the patient was more short of breath last night,he had wheezing and difficulty breating, CXR showed increased congestion. Patient started on duonebs and steroids for likely reactive airway disease, placed on bipap. ABG done. THe patient was also in Afib with RVR needing doses of metoprolol and Cardizem to control the heart rate Pertinent ROS: Denies headache, dizziness Denies chest pain, palpitations Denies cough or shortness of breath (much better) Denies abdominal pain, nausea or vomiting. Additional PMFSH (Level 3 Only): reviewed - Constitutional Vitals: Vital Signs Temp Pulse Resp BP Pulse Ox 96.2 F L 107 H 20 114/81 98 04/13/17 16:18 04/13/17 13:46 04/13/17 16:18 04/13/17 16:18 04/13/17 16:18 Period Temp Pulse Resp BP Sys/Rebolledo Pulse Ox Last 24 Hr 96.2 F-99.7 F 100-138 15-24 77-175/43-121 87-100 Intake and Output 04/13/17 04/13/17 04/13/17 05:59 13:59 21:59 Intake Total 790 / 790 1490 / 1490 Output Total 1150 / 1150 515 / 515 Balance -360 / -360 975 / 975 Intake & Output: Intake & Output 04/13/17 04/13/17 04/13/17 05:59 13:59 21:59 Intake Total 790 / 790 1490 / 1490 Output Total 1150 / 1150 515 / 515 Balance -360 / -360 975 / 975 Intake: IV 550 / 550 50 / 50 Zosyn 3.375 gm In 50 / 50 50 / 50 Dextrose 5% in Water 50 ml @ 100 mls/hr IV Q6H [facility] Rx#:[id number] Vancomycin 1,500 mg In 500 / 500 Sodium Chloride 0.9% 500 ml @ 333.3 mls/hr IV Q12H ALDO Rx#:[id number] Oral 240 / 240 1440 / 1440 Output: Urine Catheter Amount 1150 / 1150 515 / 515 Other: Meal Lunch Percent of Meal Consumed 75% Exam: Constitutional; Afebrile, cooperative, alert, not in distress. Eyes- No icterus, , No periorbital swelling Ears- Ext ear normal, hearing normal to conversation. Neck- Midline trachea, supple Respiratory system: Air Entry equal on both sides, No crackles or wheezing, no rhonchi. CVS- Rate tachycardic rhythm regular, S1,S2 heard, no gallop, no rub. Abdomen- Soft nontender abdomen, no organomegaly, no tenderness, no guarding or rigidity, FUR JOINER- AOOx3, moving all extremities, no gross focal deficit noted. Medical - PN: Obj Da - Labs CBC & Chem 7: 04/13/17 04:00 04/13/17 04:00 Labs: Abnormal Lab Results 04/13/17 04/13/17 04/12/17 04:00 04:00 17:08 WBC RBC 4.01 L Hgb 11.6 L Hct 34.6 L RDW 15.0 H Plt Count 117 L Gran % 86.5 H Lymph % (Auto) 11.0 L Elbert % (Auto) Lymph # (Auto) 0.6 L ESR Sodium Chloride Carbon Dioxide Creatinine Glucose 279 H Calcium 7.5 L Phosphorus Magnesium 2.7 H Direct Bilirubin GGT 76 H AST 45 H ALT 46 H Lactate Dehydrogenase 313 H Total Creatine Kinase 976 H C-Reactive Protein Triglycerides Urine Protein Urine Glucose (UA) Urine Occult Blood Urine Urobilinogen Urine RBC Urine WBC CSF RBC CSF Total Nucleated Auto CSF Neutrophils CSF Glucose 04/12/17 04/12/17 04/12/17 17:08 16:09 16:05 WBC RBC 4.07 L Hgb 11.6 L Hct 35.1 L RDW 15.4 H Plt Count Gran % Lymph % (Auto) Elbert % (Auto) Lymph # (Auto) ESR Sodium 129 L Chloride 94 L Carbon Dioxide 21 L Creatinine 1.3 H Glucose 236 H Calcium 7.6 L Phosphorus Magnesium Direct Bilirubin 0.4 H GGT 82 H AST 50 H ALT 46 H Lactate Dehydrogenase 331 H Total Creatine Kinase C-Reactive Protein Triglycerides 175 H Urine Protein 100 A Urine Glucose (UA) >=500 A Urine Occult Blood >=1.0 A Urine Urobilinogen 2.0 A Urine RBC > 182 H Urine WBC 5 H CSF RBC CSF Total Nucleated Auto CSF Neutrophils CSF Glucose 04/12/17 04/12/17 04/12/17 12:21 06:19 06:19 WBC RBC 4.06 L Hgb 11.9 L Hct 35.0 L RDW 15.1 H Plt Count 126 L Gran % Lymph % (Auto) 10.7 L Elbert % (Auto) Lymph # (Auto) 0.6 L ESR 44 H Sodium 131 L Chloride Carbon Dioxide 19 L Creatinine 1.3 H Glucose 167 H Calcium 7.5 L Phosphorus 1.5 L Magnesium Direct Bilirubin GGT 80 H AST 46 H ALT Lactate Dehydrogenase 318 H Total Creatine Kinase C-Reactive Protein 9.9 H Triglycerides Urine Protein Urine Glucose (UA) Urine Occult Blood Urine Urobilinogen Urine RBC Urine WBC CSF RBC 388 H CSF Total Nucleated Auto 9 H CSF Neutrophils 14 H CSF Glucose 98 H 04/11/17 04/11/17 04/11/17 03:10 03:10 02:20 WBC 4.0 L RBC 4.00 L Hgb 11.6 L Hct 34.5 L RDW 14.9 H Plt Count 134 L Gran % Lymph % (Auto) Elbert % (Auto) 15.4 H Lymph # (Auto) 0.8 L ESR Sodium Chloride Carbon Dioxide Creatinine 1.3 H Glucose 110 H Calcium 7.5 L Phosphorus 2.2 L Magnesium Direct Bilirubin GGT 76 H AST 43 H ALT Lactate Dehydrogenase Total Creatine Kinase C-Reactive Protein Triglycerides Urine Protein Urine Glucose (UA) Urine Occult Blood Urine Urobilinogen Urine RBC 2 H Urine WBC CSF RBC CSF Total Nucleated Auto CSF Neutrophils CSF Glucose Meds: Medications Acetylcysteine (Mucomyst) 1,200 mg PO Q12 [facility] Stop: 04/13/17 21:01 Last Admin: 04/13/17 09:18 Dose: 1,200 mg Albuterol/Ipratropium (Duoneb) 3 ml NEB Q6HRT [facility] Last Admin: 04/13/17 13:43 Dose: 3 ml Allopurinol (Zyloprim) 150 mg PO DAILY [facility] Last Admin: 04/13/17 09:19 Dose: 150 mg Amlodipine Besylate (Norvasc) 10 mg PO QDAY [facility] Last Admin: 04/13/17 09:19 Dose: 10 mg Aspirin (Aspirin) 81 mg PO DAILY [facility] Last Admin: 04/13/17 09:20 Dose: 81 mg Atorvastatin Calcium (Lipitor) 40 mg PO DAILY [facility] Last Admin: 04/13/17 13:13 Dose: Not Given Dextrose (Dextrose 50%) 0 ml IV UD PRN PRN Reason: Hypoglycemia Diagnostic Test (Pha) (Accu-Chek) 1 each FS ACHS [facility] Last Admin: 04/13/17 14:25 Dose: 1 each Doxycycline Hyclate (Doxycycline Hyclate) 100 mg PO BID [facility] Last Admin: 04/13/17 11:47 Dose: 100 mg Enoxaparin Sodium (Lovenox) 30 mg SQ BID [facility] Last Admin: 04/13/17 09:17 Dose: 30 mg Furosemide (Lasix) 80 mg PO QDAY [facility] Last Admin: 04/13/17 09:20 Dose: 80 mg Glucose (Insta-Glucose) 15 gm PO PRN PRN PRN Reason: Hypoglycemia Heparin Sodium (Porcine) (Heparin Flush) 2 ml IV PRN PRN PRN Reason: FLUSH Last Admin: 04/13/17 09:18 Dose: 2 ml Hydromorphone HCl (Dilaudid) 1 mg IV Q4HP PRN PRN Reason: Pain Last Admin: 04/13/17 14:13 Dose: 1 mg Piperacillin Sod/Tazobactam (Sod 3.375 gm/ Dextrose) 50 mls @ 100 mls/hr IV Q6H [facility] Last Admin: 04/13/17 11:47 Dose: 100 mls/hr Vancomycin HCl 1,500 mg/ (Sodium Chloride) 500 mls @ 333.3 mls/hr IV Q12H [facility] Last Admin: 04/13/17 09:56 Dose: 333 mls/hr Insulin Glargine (Lantus) 140 unit SQ HS [facility] Insulin Human Lispro (Humalog) 0 unit SQ ACHS [facility] PRN Reason: Protocol Insulin Lispro Protam/Lispro Human (Humalog 75/25) 220 unit SQ ACB [facility] Magnesium Hydroxide (Milk Of Magnesia) 30 ml PO DAILYP PRN PRN Reason: Constipation Magnesium Oxide (Magnesium Oxide) 400 mg PO HS [facility] Last Admin: 04/12/17 21:23 Dose: 400 mg Metoclopramide HCl (Reglan) 5 mg IV Q6HP PRN PRN Reason: Nausea And Vomiting Metoprolol Tartrate (Lopressor) 50 mg PO BID [facility] Last Admin: 04/13/17 09:19 Dose: 50 mg Naloxone HCl (Narcan) 0.1 mg IV Q2MIN PRN PRN Reason: Opiate Reversal Nitroglycerin (Nitrostat) 0.4 mg SL Q5MINP PRN PRN Reason: Chest Pain Ondansetron HCl (Zofran) 4 mg IV Q4HP PRN PRN Reason: Nausea And Vomiting Last Admin: 04/11/17 17:34 Dose: 4 mg Pantoprazole Sodium (Protonix) 40 mg IV BIDAC [facility] Last Admin: 04/13/17 07:22 Dose: 40 mg Alpha Lipoic Acid (200 Mg Capsule) 1 dose PO HS [facility] Last Admin: 04/12/17 21:51 Dose: Not Given Prednisone (Prednisone) 40 mg PO [facility] Vancomycin HCl (Vancomycin Per Pharmacy) 1 order IV UD [facility] Vitamin D (Vitamin D3) 1,000 unit PO DAILY [facility] Last Admin: 04/13/17 09:19 Dose: 1,000 unit Medical - PN: A/P - Time Spent With Patient Total time spent is greater than 50% in coordination of care (as documented) at patient's floor/unit and/or counseling patient: - Narrative A/P Narrative: A/P Fever/ Sepsis/ Cellulitis/ Gastroenteritis: Etiology of fever is a bit unclear at this time, but this has resolved now. he remains on vanco and zosy and doxycycline. Reactive Airway Disease: Steroids and duonebs for now Acute hypoxic resp failure: due to airway disease and CHF exacerbation. BIPAP and IV lasix given with good response, pt off bipap. Afib with RVR: No h/o afib in past, HR still high, increse dose of metoprolol to 100mg bid. CHADSVASSC score 3-4, needs anticoagulation, high copay, will need to consider coumadin for now, and consider eliquis if his insurance allows , can be decided by PCP Rodent exposure: Leptospirosis and hanta virus sent, rickettsia dna probe ordered. On doxycycline for now, Acute Kidney Failure: Creat is 1.3, stable monitor, hold IVF for now. Hold nephrotoxic meds, WES / metformin. DM: Patient insulin doses are very high on the med list, presently on med prot sliding scale insulin, Glucose at goal, continue [email or web address] Renal cyst/ RCC noted on the CT abdomen and pelvis, incidental finding, outpatient follow up with urology at discharge/ based on probl list it seems pcp is aware of same. DM: Uncontrolled glucose, takes 220 of insulin 70/30 insulin in AM and 140 Levemir in PM, will resume same, given that he is on steroids he will need higher doses, also on high dose protocol for sliding scale insulin CAD: h/o HI in the past, resume home meds, no chest pain reported. DVT heparin sq Diet Carb restricted Full code. Medical - PN: Qual - VTE Deep Vein Thrombosis/Pulmonary Embolism Present on Admission: No
[2017-04-13] MEDS ORDERED: METOPROLOL TARTRATE 50 MG TABLET PO ONE (17:00)
[2017-04-13] MEDS ORDERED: INSULIN REGULAR, HUMAN 1 UNIT/0.01 ML UNIT IV ONE ×2 (17:16→18:30)
[2017-04-13] MEDS ORDERED: WARFARIN 10 MG TABLET PO ONE (17:21)
--- NOTE | 2017-04-13 17:37 | Cat Scan Report ---
CLINICAL INFORMATION: Fever - unknown origin COMPARISON: 04/10/[address] and chest CT from 02/07/2014. TECHNIQUE: Enteric contrast was utilized. 80 cc of Isovue-300 were injected intravenously, and 50 seconds later 2.5 mm helical slices were obtained from the lung apices through the subtrochanteric regions of the femurs. Following reconstruction, 2.5 mm sagittal, coronal and axial reformatted images were processed and reviewed at multiple windows and levels. 7 mm MIP reconstructions were obtained through the lungs to optimize nodule detection. FINDINGS: Moderate bilateral pleural effusions and subsegmental atelectasis in the adjacent lower lobes. Mediastinal windows show the right PICC line in stable satisfactory position at the SVC last right atrial junction. Heart is borderline enlarged and there is moderate calcific plaque in the coronary arteries. The esophagus is normal. There a few borderline enlarged lymph nodes seen in the lower mediastinum and hilum - ranging up to 13 mm in the right infrahilar region. There is also adenopathy in the AP window and in the right peritracheal region. They're almost certainly benign reactive lymph nodes. Images through the abdomen show mildly enlarged liver with diffuse fatty change. There are no focal hepatic lesions. The gallbladder and bile ducts are normal CBD: 5 mm. The spleen is mildly enlarged - as previously seen - 16 x 5 x 16 cm. The pancreas, adrenal glands and aorta, including aortic branches, are normal. Both kidneys are normal in size and configuration. The 3.5 mm nonobstructing stone inferior calyx of the right kidney. A 2.4 cm hyperdense cyst posterior cortex mid left kidney is unchanged. 10 mm hyperdense cyst posterior cortex mid right kidney also unchanged. There is moderate edema in the perinephric fat, adjacent to, and involving gerotas fascia which is new from remote studies. No ascites. Few mildly enlarged lymph nodes in the upper abdomen noted in the peripancreatic, periduodenal and james hepatis region. They have increased since previous study. Images should the pelvis show a penile implant with insufflation bulb anterior to the urinary bladder. Urinary bladder is unremarkable. Prostate and seminal vesicles also unremarkable. There are multiple sigmoid diverticuli, but no evidence of diverticulitis. The remainder of the colon, small bowel and stomach are normal. The appendix is surgically absent. Bone windows show only degenerative changes in the lumbar spine IMPRESSION: 1. Mild hepatosplenomegaly. A few mildly enlarged lymph nodes in the upper abdomen noted in the peripancreatic periduodenal james hepatis region. This may indicate inflammation or infection. Neoplastic processes include leukemia or lymphoma. 2. Moderate bilateral pleural effusions with bilateral subsegmental atelectasis both posterior lower lobes - mild adenopathy in the mediastinum and hilar is likely benign.. 3. 3.5 mm nonobstructing stone inferior calyx the right kidney and bilateral renal cysts stable Interpreted and Authenticated by: Aron Lundberg 04/13/17
[2017-04-13] MEDS ORDERED: INSULIN REGULAR, HUMAN 1 UNIT/0.01 ML UNIT ONE (19:11)
[2017-04-13] MEDS: METOPROLOL TARTRATE 50 MG TABLET PO SCH (20:29)
[2017-04-13] MEDS: MAGNESIUM OXIDE 400 MG TABLET PO SCH (20:30)
[2017-04-13] MEDS: INSULIN GLARGINE, HUMAN 1 UNIT/0.01 ML SQ SCH (20:45)
[2017-04-13] MEDS: ALPHA LIPOIC ACID 200 MG PO SCH (20:48)
[2017-04-13] MEDS ORDERED: METOPROLOL TARTRATE 5 MG/5 ML VIAL IV PRN (21:11)
[2017-04-14] MEDS: IPRATROPIUM/ALBUTEROL 3 ML AMPUL.NEB NEB SCH ×4 (00:28→18:09)
[2017-04-14] MEDS: PIPERACILLIN SODIUM/TAZOBACTAM 3.375 GM in DEXTROSE 5% IN WATER 50 ML IV SCH ×3 (05:22→17:33)
[2017-04-14 06:16] LABS: Basophils # (Auto) 0 K/mcL (0.0-0.3); Basophils % (Auto) 0.2 % (0.0-2.0); Eosinophils # (Auto) 0 K/mcL (0.0-0.7); Eosinophils % (Auto) 0.3 % (0.0-7.0); Granulocytes % (Auto) 89.5 % (38.0-78.0); Lymphocytes # (Auto) 0.6 K/mcL (1.5-4.8); Lymphocytes % (Auto) 6.8 % (15.5-49.0); Mean Cell Volume 83.8 fL (80.0-100.0); Mean Corpuscular HGB Conc 33.9 g/dL (31.0-36.0); Mean Corpuscular Hemoglobin 28.4 pg (26.0-34.0); Monocytes # (Auto) 0.3 K/mcL (0.1-0.9); Monocytes % (Auto) 3.2 % (1.0-12.0); Platelet Count 160 K/mcL (140-440); RBC 3.96 M/mcL (4.50-5.90); Red Cell Distribution Width 14.8 % (11.5-14.5)
[2017-04-14 06:27] LABS: ALT/SGPT 50 U/l (0-40); Alkaline Phosphatase 46 U/L (39-117); Bilirubin,Direct < 0.2 mg/dL (0.0-0.3); Blood Urea Nitrogen 28 mg/dl (8-23); Gamma Glutamyl Transpeptidase 69 U/L (8-61); Magnesium 2.6 mg/dL (1.6-2.5); Uric Acid 5.1 mg/dL (2.5-8.0)
[2017-04-14] MEDS: HYDROmorphone 2 MG/ML SYRINGE IV PRN ×3 (07:20→19:00)
[2017-04-14] MEDS ORDERED: INSULIN, 75/25 NPL/LISPRO 1 UNIT/0.01 ML UNIT SQ SCH (07:30)
[2017-04-14] MEDS ORDERED: INSULIN 70/30, HUMAN 1 UNIT/0.01 ML UNIT SQ SCH (07:30)
[2017-04-14] MEDS: INSULIN LISPRO 1 UNIT/0.01 ML UNIT SQ SCH ×4 (08:00→20:38)
[2017-04-14] MEDS: predniSONE 20 MG TABLET PO SCH (08:00)
[2017-04-14] MEDS: PANTOPRAZOLE 40 MG VIAL IV SCH ×2 (08:02→17:33)
[2017-04-14] MEDS: METOPROLOL TARTRATE 50 MG TABLET PO SCH ×2 (08:05→20:39)
[2017-04-14] MEDS: ALLOPURINOL 100 MG TABLET PO SCH (08:05)
[2017-04-14] MEDS: ENOXAPARIN 30 MG/0.3 ML SYRINGE SQ SCH ×2 (08:05→20:39)
[2017-04-14] MEDS: DOXYCYCLINE HYCLATE 100 MG TABLET.ORL PO SCH ×2 (08:05→20:38)
[2017-04-14] MEDS: ASPIRIN 81 MG TAB.CHEW PO SCH (08:06)
[2017-04-14] MEDS: ATORVASTATIN 20 MG TABLET PO SCH (08:06)
[2017-04-14] MEDS: amLODIPine 10 MG TABLET PO SCH (08:06)
[2017-04-14] MEDS: FUROSEMIDE 80 MG TABLET PO SCH (08:09)
[2017-04-14] MEDS: VITAMIN D3 1,000 UNIT TABLET PO SCH (08:09)
[2017-04-14] MEDS: VANCOMYCIN 1,500 MG in 0.9 % SODIUM CHLORIDE 500 ML IV SCH ×2 (10:26→20:40)
--- NOTE | 2017-04-14 13:43 | Internal Med Progress Note ---
Medical - PN: Subj Patient information: Note initiated : 04/14/17 at 1:43 pm Service Date, if different from initiated Date: [] Patient: Ranulfo Molina 71 y/o M admitted on 04/11/17 for Fever, Sepsis, Cellulitis, Gastroenteritis. Chief Complaint: [] Interval history: Mr. Molina is a 71 year old Male with h/o DM, CAD and other medical issues presented to the ER today after not being well for nearly 10 days to 2 weeks. His at bedside The patient notes that he was at a family reunion and since that time he has not been feeling well, he has been fatigued and tired, having myalgia and poor appetite. The patient noticed some fever and chills going on from this wednesday, Fever is waxing and waning, associated with chills and rigors with some sweating , so much so that the patient is unable to perform his functions. He noted shortness of breath, nausea and abodminal pain which is associated with the fever. The patient denies any sick contacts, has chr cough, but no change in pattern, no urinary complaints. He was in [facility] yesterday where he was evaluated in the [facility] ER, he notes that they evaluated him and discharged him without any specific diagnosis. Today his fever was 103.5, he had taken some ibuprofen and tylenol today, and as his condition was worsening they brought him to the hospital. The patient notes that he helped a gentleman while on way to [place], and when he entered the house there was significant filt, including rat feces around. Patient denies touching any object and washed his hands with cholorx later. In the ER the patient was febrile, 103.5, he has normal WBC count, creat of 1.4 , baseline is normal, he has elevated CRP and slightly elevated procalcitonin. He was admitted to the hospital for further management. He admits to some headaches, no changes in vision, no difficulty in hearing or swelling, he admits to shortness of breath and some cough. He has abdominal pain located in the left lower quadrant and periumbilical region. The patient has some nausea but has not vomited. he denies any bowel or bladder complaints. He has no joint pains but does admit to myalgias. The patient has no abnormal skin rashes. Denies any behavioral change. 04/12: Patient seen examined this AM, patient continues to be febrile, weak and intermittently short of breath. he has cough, but no other symptoms, His lab work is unremarkable so far. Early this AM he went in Afib with RVR. CXR shows resolved CHF. The Patient history reviewed, his partner notes that he may have eaten a meat ball fallen on the ground on the day of family reunion. The patient thinks that the fever started 24 hrs after the exposure to the house with rodents. The patient lab workup has been sent for JERED, ANCA, c3,c4, leptospirosis dna pcr , Hanta virus, ricketsia dNA, blood culture was positive for GPC in one bottle, Patient continues to be on vanco and zosyn, Doxy added yesterday. Etiology of patients present condition so far unknown, infectious, viral, zoonotic vs autoimmue possibility. continue workup. He is a bit short of breath this AM, but has no wheezing, oxygen saturation is good, 04/13: Pt seen examined, overnight issues reviewed, the patient was more short of breath last night,he had wheezing and difficulty breating, CXR showed increased congestion. Patient started on duonebs and steroids for likely reactive airway disease, placed on bipap. ABG done. THe patient was also in Afib with RVR needing doses of metoprolol and Cardizem to control the heart rate 04/14: The patient seen examined, overnight events, patient slept okay. His heart rate was stable overnight, but this increased this morning. He is on metoprolol 100 mg twice a day. He has not required BiPAP last night. The patient has been started on Coumadin yesterday. I reviewed within all major risk factors associated with the use of anticoagulation. Which includes ICP GI bleed and possibly . I explained all the questions that the patient had. I explained to him the benefits of using anticoagulation in patients with atrial fibrillation and explained the patient's satisfaction, every. question that he had. Pertinent ROS: Denies headache, dizziness Denies chest pain, palpitations Denies cough or shortness of breath Denies abdominal pain, nausea or vomiting. - Constitutional Vitals: Vital Signs Temp Pulse Resp BP Pulse Ox 98.0 F 100 H 16 116/71 96 04/14/17 04:17 04/14/17 13:24 04/14/17 13:24 04/14/17 11:56 04/14/17 11:56 Period Temp Pulse Resp BP Sys/Rebolledo Pulse Ox Last 24 Hr 96.2 F-98.0 F 100-121 16-20 77-139/43-100 94-100 Intake and Output 04/13/17 04/14/17 04/14/17 21:59 05:59 13:59 Intake Total 700 / 700 1440 / 1440 Output Total 3800 / 3800 700 / 700 400 / 400 Balance -3100 / -3100 740 / 740 -400 / -400 Weight 303 lb 303 lb Patient Weight 04/15/17 05:59 Weight 303 lb Intake & Output: Intake & Output 04/13/17 04/14/17 04/14/17 21:59 05:59 13:59 Intake Total 700 / 700 1440 / 1440 Output Total 3800 / 3800 700 / 700 400 / 400 Balance -3100 / -3100 740 / 740 -400 / -400 Weight 303 lb 303 lb Intake: IV 50 / 50 600 / 600 Zosyn 3.375 gm In 50 / 50 100 / 100 Dextrose 5% in Water 50 ml @ 100 mls/hr IV Q6H [facility] Rx#:[id number] Vancomycin 1,500 mg In 500 / 500 Sodium Chloride 0.9% 500 ml @ 333.3 mls/hr IV Q12H AL[facility] Rx#:[id number] Oral 650 / 650 840 / 840 Output: Urine Catheter Amount 3100 / 3100 Void Amount 700 / 700 700 / 700 400 / 400 Other: # Bowel Movements 0 0 Exam: Constitutional; Afebrile, cooperative, alert, not in distress. Eyes- No icterus, , No periorbital swelling Ears- Ext ear normal, hearing normal to conversation. Neck- Midline trachea, supple Respiratory system: Air Entry equal on both sides, No crackles or wheezing, no rhonchi. CVS- Rate rhythm irregular, S1,S2 heard, no gallop, no rub. Abdomen- Soft nontender abdomen, no organomegaly, no tenderness, no guarding or rigidity, [employer]- AOOx3, moving all extremities, no gross focal deficit noted. Medical - PN: Obj Da - Labs CBC & Chem 7: 04/14/17 04:00 04/14/17 04:00 Labs: Abnormal Lab Results 04/14/17 04/14/17 04/14/17 04:00 04:00 04:00 RBC Hgb Hct RDW Plt Count Gran % Lymph % (Auto) Lymph # (Auto) ESR PT 15.9 H INR 1.2 H Sodium Chloride Carbon Dioxide 20 L BUN 28 H Creatinine Glucose 270 H Calcium 7.6 L Phosphorus 1.8 L Magnesium 2.6 H Direct Bilirubin GGT 69 H AST 41 H ALT 50 H Lactate Dehydrogenase 292 H Total Creatine Kinase 637 H C-Reactive Protein Albumin 3.0 L Triglycerides 216 H Urine Protein Urine Glucose (UA) Urine Occult Blood Urine Urobilinogen Urine RBC Urine WBC CSF RBC CSF Total Nucleated Auto CSF Neutrophils CSF Glucose 04/14/17 04/13/17 04/13/17 04:00 04:00 04:00 RBC 3.96 L 4.01 L Hgb 11.2 L 11.6 L Hct 33.1 L 34.6 L RDW 14.8 H 15.0 H Plt Count 117 L Gran % 89.5 H 86.5 H Lymph % (Auto) 6.8 L 11.0 L Lymph # (Auto) 0.6 L 0.6 L ESR PT INR Sodium Chloride Carbon Dioxide BUN Creatinine Glucose 279 H Calcium 7.5 L Phosphorus Magnesium 2.7 H Direct Bilirubin GGT 76 H AST 45 H ALT 46 H Lactate Dehydrogenase 313 H Total Creatine Kinase C-Reactive Protein Albumin Triglycerides Urine Protein Urine Glucose (UA) Urine Occult Blood Urine Urobilinogen Urine RBC Urine WBC CSF RBC CSF Total Nucleated Auto CSF Neutrophils CSF Glucose 04/12/17 04/12/17 04/12/17 17:08 17:08 16:09 RBC 4.07 L Hgb 11.6 L Hct 35.1 L RDW 15.4 H Plt Count Gran % Lymph % (Auto) Lymph # (Auto) ESR PT INR Sodium 129 L Chloride 94 L Carbon Dioxide 21 L BUN Creatinine 1.3 H Glucose 236 H Calcium 7.6 L Phosphorus Magnesium Direct Bilirubin 0.4 H GGT 82 H AST 50 H ALT 46 H Lactate Dehydrogenase 331 H Total Creatine Kinase 976 H C-Reactive Protein Albumin Triglycerides 175 H Urine Protein Urine Glucose (UA) Urine Occult Blood Urine Urobilinogen Urine RBC Urine WBC CSF RBC CSF Total Nucleated Auto CSF Neutrophils CSF Glucose 04/12/17 04/12/17 04/12/17 16:05 12:21 06:19 RBC Hgb Hct RDW Plt Count Gran % Lymph % (Auto) Lymph # (Auto) ESR PT INR Sodium 131 L Chloride Carbon Dioxide 19 L BUN Creatinine 1.3 H Glucose 167 H Calcium 7.5 L Phosphorus 1.5 L Magnesium Direct Bilirubin GGT 80 H AST 46 H ALT Lactate Dehydrogenase 318 H Total Creatine Kinase C-Reactive Protein 9.9 H Albumin Triglycerides Urine Protein 100 A Urine Glucose (UA) >=500 A Urine Occult Blood >=1.0 A Urine Urobilinogen 2.0 A Urine RBC > 182 H Urine WBC 5 H CSF RBC 388 H CSF Total Nucleated Auto 9 H CSF Neutrophils 14 H CSF Glucose 98 H 04/12/17 04/11/17 06:19 02:20 RBC 4.06 L Hgb 11.9 L Hct 35.0 L RDW 15.1 H Plt Count 126 L Gran % Lymph % (Auto) 10.7 L Lymph # (Auto) 0.6 L ESR 44 H PT INR Sodium Chloride Carbon Dioxide BUN Creatinine Glucose Calcium Phosphorus Magnesium Direct Bilirubin GGT AST ALT Lactate Dehydrogenase Total Creatine Kinase C-Reactive Protein Albumin Triglycerides Urine Protein Urine Glucose (UA) Urine Occult Blood Urine Urobilinogen Urine RBC 2 H Urine WBC CSF RBC CSF Total Nucleated Auto CSF Neutrophils CSF Glucose Meds: Medications Albuterol/Ipratropium (Duoneb) 3 ml NEB Q6HRT [facility] Last Admin: 04/14/17 13:24 Dose: 3 ml Allopurinol (Zyloprim) 150 mg PO DAILY [facility] Last Admin: 04/14/17 08:05 Dose: 150 mg Amlodipine Besylate (Norvasc) 10 mg PO QDAY [facility] Last Admin: 04/14/17 08:06 Dose: 10 mg Aspirin (Aspirin) 81 mg PO DAILY [facility] Last Admin: 04/14/17 08:06 Dose: 81 mg Atorvastatin Calcium (Lipitor) 40 mg PO DAILY [facility] Last Admin: 04/14/17 08:06 Dose: Not Given Dextrose (Dextrose 50%) 0 ml IV UD PRN PRN Reason: Hypoglycemia Diagnostic Test (Pha) (Accu-Chek) 1 each FS ACHS [facility] Last Admin: 04/14/17 12:27 Dose: 1 each Doxycycline Hyclate (Doxycycline Hyclate) 100 mg PO BID [facility] Last Admin: 04/14/17 08:05 Dose: 100 mg Enoxaparin Sodium (Lovenox) 30 mg SQ BID [facility] Last Admin: 04/14/17 08:05 Dose: 30 mg Furosemide (Lasix) 80 mg PO QDAY [facility] Last Admin: 04/14/17 08:09 Dose: 80 mg Glipizide (Glucotrol Xl) 10 mg PO BIDAC [facility] Glucose (Insta-Glucose) 15 gm PO PRN PRN PRN Reason: Hypoglycemia Heparin Sodium (Porcine) (Heparin Flush) 2 ml IV PRN PRN PRN Reason: FLUSH Last Admin: 04/13/17 09:18 Dose: 2 ml Hydrochlorothiazide (Oretic) 25 mg PO DAILY [facility] Hydromorphone HCl (Dilaudid) 1 mg IV Q4HP PRN PRN Reason: Pain Last Admin: 04/14/17 11:44 Dose: 1 mg Piperacillin Sod/Tazobactam (Sod 3.375 gm/ Dextrose) 50 mls @ 100 mls/hr IV Q6H [facility] Last Admin: 04/14/17 11:45 Dose: 100 mls/hr Vancomycin HCl 1,500 mg/ (Sodium Chloride) 500 mls @ 333.3 mls/hr IV Q12H [facility] Last Admin: 04/14/17 10:26 Dose: 333 mls/hr Insulin Glargine (Lantus) 140 unit SQ HS [facility] Last Admin: 04/13/17 20:45 Dose: 140 unit Insulin Human Lispro (Humalog) 0 unit SQ ACHS [facility] PRN Reason: Protocol Last Admin: 04/14/17 12:28 Dose: 6 unit Insulin Lispro Protam/Lispro Human (Humalog 75/25) 240 unit SQ ACB [facility] Magnesium Hydroxide (Milk Of Magnesia) 30 ml PO DAILYP PRN PRN Reason: Constipation Magnesium Oxide (Magnesium Oxide) 400 mg PO HS [facility] Last Admin: 04/13/17 20:30 Dose: 400 mg Metoclopramide HCl (Reglan) 5 mg IV Q6HP PRN PRN Reason: Nausea And Vomiting Metoprolol Tartrate (Lopressor) 100 mg PO BID [facility] Last Admin: 04/14/17 08:05 Dose: 100 mg Naloxone HCl (Narcan) 0.1 mg IV Q2MIN PRN PRN Reason: Opiate Reversal Nitroglycerin (Nitrostat) 0.4 mg SL Q5MINP PRN PRN Reason: Chest Pain Ondansetron HCl (Zofran) 4 mg IV Q4HP PRN PRN Reason: Nausea And Vomiting Last Admin: 04/11/17 17:34 Dose: 4 mg Pantoprazole Sodium (Protonix) 40 mg IV BIDAC [facility] Last Admin: 04/14/17 08:02 Dose: 40 mg Alpha Lipoic Acid (200 Mg Capsule) 1 dose PO HS [facility] Last Admin: 04/13/17 20:48 Dose: Not Given Prednisone (Prednisone) 40 mg PO QAC [facility] Last Admin: 04/14/17 08:00 Dose: 40 mg Vancomycin HCl (Vancomycin Per Pharmacy) 1 order IV UD [facility] Vitamin D (Vitamin D3) 1,000 unit PO DAILY [facility] Last Admin: 04/14/17 08:09 Dose: 1,000 unit Warfarin Sodium (Coumadin Per Pharmacy) 1 order PO DAILY@1400 [facility] Warfarin Sodium (Coumadin) 5 mg PO ONCE@1400 ONE Stop: 04/14/17 14:01 Medical - PN: A/P - Time Spent With Patient Total time spent is greater than 50% in coordination of care (as documented) at patient's floor/unit and/or counseling patient: - Narrative A/P Narrative: A/P Fever/ Sepsis/ Cellulitis/ Gastroenteritis: Etiology of fever is a bit unclear at this time, but this has resolved now. he remains on vanco and zosy and doxycycline, Await results of labs, which I expect to see some by wednesday. Reactive Airway Disease: Steroids and duonebs for now, no wheezing today, no h/ o copd as per pt, Acute hypoxic resp failure: due to airway disease and CHF exacerbation. resolved , d/c bipap Afib with RVR: No h/o afib in past, HR improving, on coumadin, can be switched to eliquis by PCP. on metoprolol 100mg bid for rate control Rodent exposure: Leptospirosis and hanta virus sent, rickettsia dna probe ordered. On doxycycline for now, Acute Kidney Failure: Creat is 1.3, stable monitor, hold IVF for now. Hold nephrotoxic meds, WES / metformin. DM: Patient insulin doses are very high and have been verified now, resume home doses of insulin. sliding scale, resume glipizide. Glucose is high now [place] pt is eating and is on steroids. 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 CAD: h/o [place] in the past, resume home meds, no chest pain reported. DVT heparin sq Diet Carb restricted Full code. Medical - PN: Qual - VTE Deep Vein Thrombosis/Pulmonary Embolism Present on Admission: No
[2017-04-14] MEDS ORDERED: WARFARIN 5 MG TABLET PO ONE (14:00)
[2017-04-14] MEDS: glipiZIDE 5 MG TAB.XL.24H PO SCH (17:37)
[2017-04-14] MEDS ORDERED: HYDROcodone/APAP 10/325MG TABLET PO PRN (17:47)
[2017-04-14] MEDS ORDERED: FUROSEMIDE 40 MG/4 ML VIAL IV ONE (17:47)
[2017-04-14] MEDS: guaiFENesin/DEXTROMETHORPHAN ORAL SOL PO PRN (18:50)
[2017-04-14] MEDS: INSULIN GLARGINE, HUMAN 1 UNIT/0.01 ML SQ SCH (20:39)
[2017-04-14] MEDS: MAGNESIUM OXIDE 400 MG TABLET PO SCH ×2 (20:40→20:48)
[2017-04-14] MEDS: ALPHA LIPOIC ACID 200 MG PO SCH (20:42)
[2017-04-15] MEDS: PIPERACILLIN SODIUM/TAZOBACTAM 3.375 GM in DEXTROSE 5% IN WATER 50 ML IV SCH ×4 (01:32→17:39)
[2017-04-15] MEDS: IPRATROPIUM/ALBUTEROL 3 ML AMPUL.NEB NEB SCH ×3 (01:33→13:34)
[2017-04-15] MEDS: HYDROmorphone 2 MG/ML SYRINGE IV PRN (02:23)
[2017-04-15] MEDS: guaiFENesin/DEXTROMETHORPHAN ORAL SOL PO PRN ×3 (02:24→17:32)
[2017-04-15 05:58] LABS: Basophils # (Auto) 0 K/mcL (0.0-0.3); Basophils % (Auto) 0.1 % (0.0-2.0); Eosinophils # (Auto) 0.1 K/mcL (0.0-0.7); Eosinophils % (Auto) 0.7 % (0.0-7.0); Granulocytes % (Auto) 84.7 % (38.0-78.0); Lymphocytes # (Auto) 1.2 K/mcL (1.5-4.8); Lymphocytes % (Auto) 12.5 % (15.5-49.0); Mean Cell Volume 84.5 fL (80.0-100.0); Mean Corpuscular HGB Conc 32.8 g/dL (31.0-36.0); Mean Corpuscular Hemoglobin 27.7 pg (26.0-34.0); Monocytes # (Auto) 0.2 K/mcL (0.1-0.9); Platelet Count 208 K/mcL (140-440); Red Cell Distribution Width 14.7 % (11.5-14.5)
[2017-04-15 06:38] LABS: ALT/SGPT 63 U/l (0-40); Albumin 3.2 gm/dL (3.2-5.2); Albumin/Globulin Ratio 1.1 (1.0-2.3); Alkaline Phosphatase 54 U/L (39-117); Bilirubin,Direct < 0.2 mg/dL (0.0-0.3); Blood Urea Nitrogen 28 mg/dl (8-23); Gamma Glutamyl Transpeptidase 96 U/L (8-61); Magnesium 2.2 mg/dL (1.6-2.5); Uric Acid 5.4 mg/dL (2.5-8.0)
[2017-04-15] MEDS ORDERED: INSULIN, 75/25 NPL/LISPRO 1 UNIT/0.01 ML UNIT SQ SCH (07:30)
[2017-04-15] MEDS: INSULIN LISPRO 1 UNIT/0.01 ML UNIT SQ SCH ×4 (08:00→21:31)
[2017-04-15] MEDS: ATORVASTATIN 20 MG TABLET PO SCH (09:14)
[2017-04-15] MEDS: VITAMIN D3 1,000 UNIT TABLET PO SCH (09:14)
[2017-04-15] MEDS: glipiZIDE 5 MG TAB.XL.24H PO SCH ×2 (09:15→18:30)
[2017-04-15 09:16] LABS: SCL-7-ANTIBODY <1.0 NEG AI (<1.0 NEG); SSA <1.0 NEG AI (<1.0 NEG); SSB <1.0 NEG AI (<1.0 NEG)
[2017-04-15] MEDS: LOSARTAN 50 MG TABLET PO SCH (09:16)
[2017-04-15] MEDS: FUROSEMIDE 80 MG TABLET PO SCH (09:16)
[2017-04-15] MEDS: metFORMIN 500 MG TABLET PO SCH ×2 (09:16→18:31)
[2017-04-15] MEDS: amLODIPine 10 MG TABLET PO SCH (09:17)
[2017-04-15] MEDS: METOPROLOL TARTRATE 50 MG TABLET PO SCH ×2 (09:17→21:53)
[2017-04-15] MEDS: ASPIRIN 81 MG TAB.CHEW PO SCH (09:17)
[2017-04-15] MEDS: HYDROCHLOROTHIAZIDE 25 MG TABLET PO SCH (09:18)
[2017-04-15] MEDS: predniSONE 20 MG TABLET PO SCH (09:19)
[2017-04-15] MEDS: DOXYCYCLINE HYCLATE 100 MG TABLET.ORL PO SCH ×2 (09:19→21:53)
[2017-04-15] MEDS: PANTOPRAZOLE 40 MG VIAL IV SCH ×2 (09:21→17:32)
[2017-04-15] MEDS: ENOXAPARIN 30 MG/0.3 ML SYRINGE SQ SCH ×2 (09:21→21:53)
[2017-04-15] MEDS: ALLOPURINOL 100 MG TABLET PO SCH (09:21)
[2017-04-15] MEDS: INSULIN, 75/25 NPL/LISPRO 1 UNIT/0.01 ML UNIT SQ SCH (09:22)
[2017-04-15] MEDS: VANCOMYCIN 1,500 MG in 0.9 % SODIUM CHLORIDE 500 ML IV SCH ×2 (09:38→22:32)
[2017-04-15 10:14] LABS: HSV DNA NOT DETECTED
--- NOTE | 2017-04-15 10:36 | Internal Med Progress Note ---
Medical - PN: Subj Patient information: Note initiated : 04/15/17 at 10:34 am Service Date, if different from initiated Date: [] Patient: Ranulfo Molina 71 y/o M admitted on 04/11/17 for Fever, Sepsis, Cellulitis, Gastroenteritis. Chief Complaint: [] Interval history: Mr. Molina is a 71 year old Male with h/o DM, CAD and other medical issues presented to the ER today after not being well for nearly 10 days to 2 weeks. His at bedside The patient notes that he was at a family reunion and since that time he has not been feeling well, he has been fatigued and tired, having myalgia and poor appetite. The patient noticed some fever and chills going on from this wednesday, Fever is waxing and waning, associated with chills and rigors with some sweating , so much so that the patient is unable to perform his functions. He noted shortness of breath, nausea and abodminal pain which is associated with the fever. The patient denies any sick contacts, has chr cough, but no change in pattern, no urinary complaints. He was in [facility] yesterday where he was evaluated in the [facility] ER, he notes that they evaluated him and discharged him without any specific diagnosis. Today his fever was 103.5, he had taken some ibuprofen and tylenol today, and as his condition was worsening they brought him to the hospital. The patient notes that he helped a gentleman while on way [place], and when he entered the house there was significant filt, including rat feces around. Patient denies touching any object and washed his hands with cholorx later. In the ER the patient was febrile, 103.5, he has normal WBC count, creat of 1.4 , baseline is normal, he has elevated CRP and slightly elevated procalcitonin. He was admitted to the hospital for further management. He admits to some headaches, no changes in vision, no difficulty in hearing or swelling, he admits to shortness of breath and some cough. He has abdominal pain located in the left lower quadrant and periumbilical region. The patient has some nausea but has not vomited. he denies any bowel or bladder complaints. He has no joint pains but does admit to myalgias. The patient has no abnormal skin rashes. Denies any behavioral change. 04/12: Patient seen examined this AM, patient continues to be febrile, weak and intermittently short of breath. he has cough, but no other symptoms, His lab work is unremarkable so far. Early this AM he went in Afib with RVR. CXR shows resolved CHF. The Patient history reviewed, his partner notes that he may have eaten a meat ball fallen on the ground on the day of family reunion. The patient thinks that the fever started 24 hrs after the exposure to the house with rodents. The patient lab workup has been sent for JERED, ANCA, c3,c4, leptospirosis dna pcr , Hanta virus, ricketsia dNA, blood culture was positive for GPC in one bottle, Patient continues to be on vanco and zosyn, Doxy added yesterday. Etiology of patients present condition so far unknown, infectious, viral, zoonotic vs autoimmue possibility. continue workup. He is a bit short of breath this AM, but has no wheezing, oxygen saturation is good, 04/13: Pt seen examined, overnight issues reviewed, the patient was more short of breath last night,he had wheezing and difficulty breating, CXR showed increased congestion. Patient started on duonebs and steroids for likely reactive airway disease, placed on bipap. ABG done. THe patient was also in Afib with RVR needing doses of metoprolol and Cardizem to control the heart rate 04/14: The patient seen examined, overnight events, patient slept okay. His heart rate was stable overnight, but this increased this morning. He is on metoprolol 100 mg twice a day. He has not required BiPAP last night. The patient has been started on Coumadin yesterday. I reviewed within all major risk factors associated with the use of anticoagulation. Which includes ICP GI bleed and possibly . I explained all the questions that the patient had. I explained to him the benefits of using anticoagulation in patients with atrial fibrillation and explained the patient's satisfaction, every. question that he had. 04/15:patient seen and examined, chart reviewed, patient had slightly rough night yesterday evening when he had cough and increased shortness of breath. This has resolved with some cough syrup and IV Lasix and some DuoNeb's. The patient this morning is doing well, sitting comfortably in is bed. His heart rate is still elevated. His dose of metoprolol was increased to 150 mg twice a day. Yesterday evening, his blood pressure is stable. He no longer endorses any chest pain or significant shortness of breath. The patient is significantly weakened due to his illness and staying in bed. The last few days. The goal today is to improve his physical endurance with physical therapy. We will monitor his heart rate and adjust medications and if needed add new medications to control his rate. The patient remains on Coumadin. At this point, discharge or the next few days. Assuming rate is controlled and patient hasbetter endurance. Pertinent ROS: Denies headache, dizziness Denies chest pain, palpitations Denies cough or shortness of breath (has some cough and sob yesterday, not this AM) Denies abdominal pain, nausea or vomiting. - Constitutional Vitals: Vital Signs Temp Pulse Resp BP Pulse Ox 98.8 F 101 H 18 148/99 94 04/15/17 07:48 04/15/17 07:15 04/15/17 07:15 04/15/17 07:48 04/15/17 07:15 Period Temp Pulse Resp BP Sys/Rebolledo Pulse Ox Last 24 Hr 98.0 F-98.8 F 100-110 16-22 116-148/71-99 94-98 Intake and Output 04/14/17 04/15/17 04/15/17 21:59 05:59 13:59 Intake Total 1810 / 1810 1100 / 1100 460 / 460 Output Total 2500 / 2500 2900 / 2900 576 / 576 Balance -690 / -690 -1800 / -1800 -116 / -116 Weight 308 lb Intake & Output: Intake & Output 04/14/17 04/15/17 04/15/17 21:59 05:59 13:59 Intake Total 1810 / 1810 1100 / 1100 460 / 460 Output Total 2500 / 2500 2900 / 2900 576 / 576 Balance -690 / -690 -1800 / -1800 -116 / -116 Weight 308 lb Intake: IV 50 / 50 600 / 600 Zosyn 3.375 gm In 50 / 50 100 / 100 Dextrose 5% in Water 50 ml @ 100 mls/hr IV Q6H [facility] Rx#:[id number] Vancomycin 1,500 mg In 500 / 500 Sodium Chloride 0.9% 500 ml @ 333.3 mls/hr IV Q12H [facility] Rx#:[id number] Oral 1760 / 1760 500 / 500 460 / 460 Output: Void Amount 2500 / 2500 2900 / 2900 575 / 575 Stool Other: Meal Breakfast Percent of Meal Consumed 90 % Feeding Ability Independent # Voids 2 Exam: Constitutional; Afebrile, cooperative, alert, not in distress. Eyes- No icterus, , No periorbital swelling Ears- Ext ear normal, hearing normal to conversation. Neck- Midline trachea, supple Respiratory system: Air Entry equal on both sides, No crackles or wheezing, no rhonchi. CVS- Rate tachycardic rhythm irregular, S1,S2 heard, no gallop, no rub. Abdomen- Soft nontender abdomen, no organomegaly, no tenderness, no guarding or rigidity, [employer]- AOOx3, moving all extremities, no gross focal deficit noted. Medical - PN: Obj Da - Labs CBC & Chem 7: 04/15/17 04:04 04/15/17 04:04 Labs: Abnormal Lab Results 04/15/17 04/15/17 04/15/17 04:04 04:04 04:04 RBC 4.10 L Hgb 11.4 L Hct 34.6 L RDW 14.7 H Plt Count Gran % 84.7 H Lymph % (Auto) 12.5 L Gran # 8.5 H Lymph # (Auto) 1.2 L PT 17.7 H INR 1.4 H Sodium Chloride Carbon Dioxide BUN 28 H Creatinine Glucose 44 L Calcium 7.9 L Phosphorus 2.1 L Magnesium Direct Bilirubin GGT 96 H AST 69 H ALT 63 H Lactate Dehydrogenase 321 H Total Creatine Kinase Albumin Triglycerides 214 H Urine Protein Urine Glucose (UA) Urine Occult Blood Urine Urobilinogen Urine RBC Urine WBC CSF RBC CSF Total Nucleated Auto CSF Neutrophils CSF Glucose 04/14/17 04/14/17 04/14/17 04:00 04:00 04:00 RBC Hgb Hct RDW Plt Count Gran % Lymph % (Auto) Gran # Lymph # (Auto) PT 15.9 H INR 1.2 H Sodium Chloride Carbon Dioxide 20 L BUN 28 H Creatinine Glucose 270 H Calcium 7.6 L Phosphorus 1.8 L Magnesium 2.6 H Direct Bilirubin GGT 69 H AST 41 H ALT 50 H Lactate Dehydrogenase 292 H Total Creatine Kinase 637 H Albumin 3.0 L Triglycerides 216 H Urine Protein Urine Glucose (UA) Urine Occult Blood Urine Urobilinogen Urine RBC Urine WBC CSF RBC CSF Total Nucleated Auto CSF Neutrophils CSF Glucose 04/14/17 04/13/17 04/13/17 04:00 04:00 04:00 RBC 3.96 L 4.01 L Hgb 11.2 L 11.6 L Hct 33.1 L 34.6 L RDW 14.8 H 15.0 H Plt Count 117 L Gran % 89.5 H 86.5 H Lymph % (Auto) 6.8 L 11.0 L Gran # Lymph # (Auto) 0.6 L 0.6 L PT INR Sodium Chloride Carbon Dioxide BUN Creatinine Glucose 279 H Calcium 7.5 L Phosphorus Magnesium 2.7 H Direct Bilirubin GGT 76 H AST 45 H ALT 46 H Lactate Dehydrogenase 313 H Total Creatine Kinase Albumin Triglycerides Urine Protein Urine Glucose (UA) Urine Occult Blood Urine Urobilinogen Urine RBC Urine WBC CSF RBC CSF Total Nucleated Auto CSF Neutrophils CSF Glucose 04/12/17 04/12/17 04/12/17 17:08 17:08 16:09 RBC 4.07 L Hgb 11.6 L Hct 35.1 L RDW 15.4 H Plt Count Gran % Lymph % (Auto) Gran # Lymph # (Auto) PT INR Sodium 129 L Chloride 94 L Carbon Dioxide 21 L BUN Creatinine 1.3 H Glucose 236 H Calcium 7.6 L Phosphorus Magnesium Direct Bilirubin 0.4 H GGT 82 H AST 50 H ALT 46 H Lactate Dehydrogenase 331 H Total Creatine Kinase 976 H Albumin Triglycerides 175 H Urine Protein Urine Glucose (UA) Urine Occult Blood Urine Urobilinogen Urine RBC Urine WBC CSF RBC CSF Total Nucleated Auto CSF Neutrophils CSF Glucose 04/12/17 04/12/17 16:05 12:21 RBC Hgb Hct RDW Plt Count Gran % Lymph % (Auto) Gran # Lymph # (Auto) PT INR Sodium Chloride Carbon Dioxide BUN Creatinine Glucose Calcium Phosphorus Magnesium Direct Bilirubin GGT AST ALT Lactate Dehydrogenase Total Creatine Kinase Albumin Triglycerides Urine Protein 100 A Urine Glucose (UA) >=500 A Urine Occult Blood >=1.0 A Urine Urobilinogen 2.0 A Urine RBC > 182 H Urine WBC 5 H CSF RBC 388 H CSF Total Nucleated Auto 9 H CSF Neutrophils 14 H CSF Glucose 98 H Meds: Medications Hydrocodone Bitart/Acetaminophen ([place] 10/325mg) 1.5 tab PO Q4-6HP PRN PRN Reason: Pain Albuterol/Ipratropium (Duoneb) 3 ml NEB Q6HRT [facility] Last Admin: 04/15/17 07:13 Dose: 3 ml Allopurinol (Zyloprim) 50 mg PO DAILY [facility] Last Admin: 04/15/17 09:21 Dose: 50 mg Amlodipine Besylate (Norvasc) 10 mg PO QDAY [facility] Last Admin: 04/15/17 09:17 Dose: 10 mg Aspirin (Aspirin) 81 mg PO DAILY [facility] Last Admin: 04/15/17 09:17 Dose: 81 mg Atorvastatin Calcium (Lipitor) 40 mg PO DAILY [facility] Last Admin: 04/15/17 09:14 Dose: Not Given Dextrose (Dextrose 50%) 0 ml IV UD PRN PRN Reason: Hypoglycemia Diagnostic Test (Pha) (Accu-Chek) 1 each FS ACHS [facility] Last Admin: 04/15/17 07:33 Dose: 1 each Doxycycline Hyclate (Doxycycline Hyclate) 100 mg PO BID [facility] Last Admin: 04/15/17 09:19 Dose: 100 mg Enoxaparin Sodium (Lovenox) 30 mg SQ BID [facility] Last Admin: 04/15/17 09:21 Dose: 30 mg Furosemide (Lasix) 80 mg PO QDAY [facility] Last Admin: 04/15/17 09:16 Dose: 80 mg Glipizide (Glucotrol Xl) 10 mg PO BIDAC [facility] Last Admin: 04/15/17 09:15 Dose: 10 mg Glucose (Insta-Glucose) 15 gm PO PRN PRN PRN Reason: Hypoglycemia Guaifenesin (Robitussin Dm) 10 ml PO Q4HP PRN PRN Reason: Cough Last Admin: 04/15/17 02:24 Dose: 10 ml Hydrochlorothiazide (Oretic) 25 mg PO DAILY [facility] Last Admin: 04/15/17 09:18 Dose: 25 mg Hydromorphone HCl (Dilaudid) 1 mg IV Q4HP PRN PRN Reason: Pain Last Admin: 04/15/17 02:23 Dose: 1 mg Piperacillin Sod/Tazobactam (Sod 3.375 gm/ Dextrose) 50 mls @ 100 mls/hr IV Q6H [facility] Last Infusion: 04/15/17 05:50 Dose: Infused Vancomycin HCl 1,500 mg/ (Sodium Chloride) 500 mls @ 333.3 mls/hr IV Q12H [facility] Last Admin: 04/15/17 09:38 Dose: 333.3 mls/hr Insulin Glargine (Lantus) 140 unit SQ HS [facility] Last Admin: 04/14/17 20:39 Dose: 140 unit Insulin Human Lispro (Humalog) 0 unit SQ ACHS [facility] PRN Reason: Protocol Last Admin: 04/15/17 08:00 Dose: Not Given Insulin Lispro Protam/Lispro Human (Humalog 75/25) 140 unit SQ ACB [facility] Last Admin: 04/15/17 09:22 Dose: 140 unit Losartan Potassium (Cozaar) 100 mg PO DAILY [facility] Last Admin: 04/15/17 09:16 Dose: 100 mg Magnesium Hydroxide (Milk Of Magnesia) 30 ml PO DAILYP PRN PRN Reason: Constipation Magnesium Oxide (Magnesium Oxide) 400 mg PO HS [facility] Last Admin: 04/14/17 20:48 Dose: Not Given Metformin HCl (Glucophage) 1,000 mg PO BIDCC [facility] Last Admin: 04/15/17 09:16 Dose: 1,000 mg Metoclopramide HCl (Reglan) 5 mg IV Q6HP PRN PRN Reason: Nausea And Vomiting Metoprolol Tartrate (Lopressor) 150 mg PO BID [facility] Last Admin: 04/15/17 09:17 Dose: 150 mg Naloxone HCl (Narcan) 0.1 mg IV Q2MIN PRN PRN Reason: Opiate Reversal Nitroglycerin (Nitrostat) 0.4 mg SL Q5MINP PRN PRN Reason: Chest Pain Ondansetron HCl (Zofran) 4 mg IV Q4HP PRN PRN Reason: Nausea And Vomiting Last Admin: 04/11/17 17:34 Dose: 4 mg Pantoprazole Sodium (Protonix) 40 mg IV BIDAC [facility] Last Admin: 04/15/17 09:21 Dose: 40 mg Alpha Lipoic Acid (200 Mg Capsule) 1 dose PO HS [facility] Last Admin: 04/14/17 20:42 Dose: Not Given Prednisone (Prednisone) 40 mg PO QAC [facility] Last Admin: 04/15/17 09:19 Dose: 40 mg Vancomycin HCl (Vancomycin Per Pharmacy) 1 order IV UD [facility] Vitamin D (Vitamin D3) 1,000 unit PO DAILY [facility] Last Admin: 04/15/17 09:14 Dose: 1,000 unit Warfarin Sodium (Coumadin Per Pharmacy) 1 order PO DAILY@1400 [facility] Last Admin: 04/14/17 15:54 Dose: 1 order Medical - PN: A/P - Time Spent With Patient Total time spent is greater than 50% in coordination of care (as documented) at patient's floor/unit and/or counseling patient: - Narrative A/P Narrative: A/P Fever/ Sepsis/ Cellulitis/ Gastroenteritis: Etiology of fever is a bit unclear at this time, but this has resolved now. likely some viral illness, which self resolved or was zoonotic illness which is responding to antibiotics He remains on vancomycin and Zosyn as well as doxycycline. He is without any fever. Reactive Airway Disease: Steroids and duonebs for now, no wheezing today, no h/ o copd as per pt, patient had bout of wheezing and shortness of breath yesterday which responded to do. We'll continue present management. Acute hypoxic resp failure: due to airway disease and CHF exacerbation. resolved , d/c bipap Afib with RVR: No h/o afib in past, HR improving, on coumadin, can be switched to eliquis by PCP. dose of, metoprolol is now at 150 mg twice a day Consider adding Cardizem Rodent exposure: Leptospirosis and hanta virus sent, rickettsia dna probe ordered. On doxycycline for now,esults pending Acute Kidney Failure: Creat is 1.1, stable monitor, DM: patient's home dose of diabetes medications resumed yesterday. Patient became hypoglycemic this morning, we will cut back the dose of his insulin to 140 units for the morning today. And monitor the patient's blood glucose values. 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 CAD: h/o VT in the past, resume home meds, no chest pain reported. DVT heparin sq Diet Carb restricted Full code. Medical - PN: Qual - VTE Deep Vein Thrombosis/Pulmonary Embolism Present on Admission: No
[2017-04-15] MEDS: 0.9 % SODIUM CHLORIDE 10 ML SYRINGE IV PRN ×5 (11:55→18:34)
[2017-04-15] MEDS ORDERED: WARFARIN 5 MG TABLET PO SCH (14:00)
[2017-04-15] MEDS: IPRATROPIUM 2.5 ML AMPUL.NEB NEB SCH (20:12)
[2017-04-15] MEDS: LEVALBUTEROL 0.63 MG/3 ML AMPUL.NEB NEB SCH (20:12)
[2017-04-15] MEDS ORDERED: INSULIN GLARGINE, HUMAN 1 UNIT/0.01 ML SQ SCH (21:00)
[2017-04-15] MEDS: MAGNESIUM OXIDE 400 MG TABLET PO SCH (21:53)
[2017-04-15] MEDS ORDERED: DILTIAZEM 120 MG CAP.XL.24H PO SCH (22:14)
[2017-04-15] MEDS: ALPHA LIPOIC ACID 200 MG PO SCH (22:32)
[2017-04-15] MEDS ORDERED: DILTIAZEM 120 MG CAP.XL.24H PO ONE (22:51)
[2017-04-16] MEDS: PIPERACILLIN SODIUM/TAZOBACTAM 3.375 GM in DEXTROSE 5% IN WATER 50 ML IV SCH ×5 (00:29→23:01)
[2017-04-16] MEDS: guaiFENesin/DEXTROMETHORPHAN ORAL SOL PO PRN ×2 (00:38→09:44)
[2017-04-16] MEDS: LEVALBUTEROL 0.63 MG/3 ML AMPUL.NEB NEB SCH ×6 (01:19→23:18)
[2017-04-16] MEDS: IPRATROPIUM 2.5 ML AMPUL.NEB NEB SCH ×5 (01:19→23:18)
[2017-04-16 05:58] LABS: Basophils # (Auto) 0 K/mcL (0.0-0.3); Basophils % (Auto) 0.5 % (0.0-2.0); Eosinophils # (Auto) 0.1 K/mcL (0.0-0.7); Eosinophils % (Auto) 1.1 % (0.0-7.0); Granulocytes % (Auto) 77.8 % (38.0-78.0); Lymphocytes # (Auto) 1.5 K/mcL (1.5-4.8); Lymphocytes % (Auto) 16.1 % (15.5-49.0); Mean Cell Volume 84.6 fL (80.0-100.0); Mean Corpuscular HGB Conc 33.4 g/dL (31.0-36.0); Mean Corpuscular Hemoglobin 28.3 pg (26.0-34.0); Monocytes # (Auto) 0.4 K/mcL (0.1-0.9); Monocytes % (Auto) 4.5 % (1.0-12.0); Platelet Count 231 K/mcL (140-440); RBC 4.25 M/mcL (4.50-5.90); Red Cell Distribution Width 14.7 % (11.5-14.5)
[2017-04-16 06:44] LABS: ALT/SGPT 78 U/l (0-40); Albumin 3.3 gm/dL (3.2-5.2); Albumin/Globulin Ratio 1.2 (1.0-2.3); Alkaline Phosphatase 53 U/L (39-117); Bilirubin,Direct < 0.2 mg/dL (0.0-0.3); Blood Urea Nitrogen 23 mg/dl (8-23); Gamma Glutamyl Transpeptidase 118 U/L (8-61); Uric Acid 5.1 mg/dL (2.5-8.0)
[2017-04-16] MEDS ORDERED: PANTOPRAZOLE 40 MG PACKET PO SCH (07:30)
[2017-04-16] MEDS: predniSONE 20 MG TABLET PO SCH (07:59)
[2017-04-16] MEDS: glipiZIDE 5 MG TAB.XL.24H PO SCH ×2 (07:59→16:34)
[2017-04-16] MEDS: metFORMIN 500 MG TABLET PO SCH ×2 (07:59→16:33)
[2017-04-16] MEDS: INSULIN, 75/25 NPL/LISPRO 1 UNIT/0.01 ML UNIT SQ SCH (08:00)
[2017-04-16] MEDS: INSULIN LISPRO 1 UNIT/0.01 ML UNIT SQ SCH ×4 (08:00→20:45)
[2017-04-16] MEDS ORDERED: POTASSIUM CHLORIDE 20 MEQ PACKET PO ONE (08:27)
[2017-04-16] MEDS: 0.9 % SODIUM CHLORIDE 10 ML SYRINGE IV PRN ×3 (08:45→10:03)
[2017-04-16] MEDS: ASPIRIN 81 MG TAB.CHEW PO SCH (09:18)
[2017-04-16] MEDS: VITAMIN D3 1,000 UNIT TABLET PO SCH (09:18)
[2017-04-16] MEDS: FUROSEMIDE 80 MG TABLET PO SCH (09:18)
[2017-04-16] MEDS: ALLOPURINOL 100 MG TABLET PO SCH (09:19)
[2017-04-16] MEDS: amLODIPine 10 MG TABLET PO SCH (09:20)
[2017-04-16 09:23] LABS: ANCA SCREEN NEGATIVE (NEGATIVE)
[2017-04-16] MEDS: HYDROCHLOROTHIAZIDE 25 MG TABLET PO SCH (09:24)
[2017-04-16] MEDS: LOSARTAN 50 MG TABLET PO SCH (09:24)
[2017-04-16] MEDS: METOPROLOL TARTRATE 50 MG TABLET PO SCH ×2 (09:24→20:44)
[2017-04-16] MEDS: ENOXAPARIN 30 MG/0.3 ML SYRINGE SQ SCH ×2 (09:25→20:30)
[2017-04-16] MEDS: DOXYCYCLINE HYCLATE 100 MG TABLET.ORL PO SCH ×2 (09:26→20:45)
[2017-04-16] MEDS: VANCOMYCIN 1,500 MG in 0.9 % SODIUM CHLORIDE 500 ML IV SCH ×2 (10:03→20:28)
[2017-04-16] MEDS ORDERED: DILTIAZEM 30 MG TABLET PO SCH ×2 (12:00→18:00)
[2017-04-16] MEDS ORDERED: WARFARIN 5 MG TABLET PO ONE ×3 (14:00→16:45)
--- NOTE | 2017-04-16 14:10 | Internal Med Progress Note ---
Medical - PN: Subj Patient information: Note initiated : 04/16/17 at 2:06 pm Service Date, if different from initiated Date: [] Patient: Ranulfo Molina 71 y/o M admitted on 04/11/17 for Fever, Sepsis, Cellulitis, Gastroenteritis. Chief Complaint: [] Interval history: Mr. Molina is a 71 year old Male with h/o DM, CAD and other medical issues presented to the ER today after not being well for nearly 10 days to 2 weeks. His at bedside The patient notes that he was at a family reunion and since that time he has not been feeling well, he has been fatigued and tired, having myalgia and poor appetite. The patient noticed some fever and chills going on from this wednesday, Fever is waxing and waning, associated with chills and rigors with some sweating , so much so that the patient is unable to perform his functions. He noted shortness of breath, nausea and abodminal pain which is associated with the fever. The patient denies any sick contacts, has chr cough, but no change in pattern, no urinary complaints. He was in [facility] yesterday where he was evaluated in the [facility] ER, he notes that they evaluated him and discharged him without any specific diagnosis. Today his fever was 103.5, he had taken some ibuprofen and tylenol today, and as his condition was worsening they brought him to the hospital. The patient notes that he helped a gentleman while on way to [place], and when he entered the house there was significant filt, including rat feces around. Patient denies touching any object and washed his hands with cholorx later. In the ER the patient was febrile, 103.5, he has normal WBC count, creat of 1.4 , baseline is normal, he has elevated CRP and slightly elevated procalcitonin. He was admitted to the hospital for further management. He admits to some headaches, no changes in vision, no difficulty in hearing or swelling, he admits to shortness of breath and some cough. He has abdominal pain located in the left lower quadrant and periumbilical region. The patient has some nausea but has not vomited. he denies any bowel or bladder complaints. He has no joint pains but does admit to myalgias. The patient has no abnormal skin rashes. Denies any behavioral change. 04/12: Patient seen examined this AM, patient continues to be febrile, weak and intermittently short of breath. he has cough, but no other symptoms, His lab work is unremarkable so far. Early this AM he went in Afib with RVR. CXR shows resolved CHF. The Patient history reviewed, his partner notes that he may have eaten a meat ball fallen on the ground on the day of family reunion. The patient thinks that the fever started 24 hrs after the exposure to the house with rodents. The patient lab workup has been sent for JERED, ANCA, c3,c4, leptospirosis dna pcr , Hanta virus, ricketsia dNA, blood culture was positive for GPC in one bottle, Patient continues to be on vanco and zosyn, Doxy added yesterday. Etiology of patients present condition so far unknown, infectious, viral, zoonotic vs autoimmue possibility. continue workup. He is a bit short of breath this AM, but has no wheezing, oxygen saturation is good, 04/13: Pt seen examined, overnight issues reviewed, the patient was more short of breath last night,he had wheezing and difficulty breating, CXR showed increased congestion. Patient started on duonebs and steroids for likely reactive airway disease, placed on bipap. ABG done. THe patient was also in Afib with RVR needing doses of metoprolol and Cardizem to control the heart rate 04/14: The patient seen examined, overnight events, patient slept okay. His heart rate was stable overnight, but this increased this morning. He is on metoprolol 100 mg twice a day. He has not required BiPAP last night. The patient has been started on Coumadin yesterday. I reviewed within all major risk factors associated with the use of anticoagulation. Which includes ICP GI bleed and possibly . I explained all the questions that the patient had. I explained to him the benefits of using anticoagulation in patients with atrial fibrillation and explained the patient's satisfaction, every. question that he had. 04/15:patient seen and examined, chart reviewed, patient had slightly rough night yesterday evening when he had cough and increased shortness of breath. This has resolved with some cough syrup and IV Lasix and some DuoNeb's. The patient this morning is doing well, sitting comfortably in is bed. His heart rate is still elevated. His dose of metoprolol was increased to 150 mg twice a day. Yesterday evening, his blood pressure is stable. He no longer endorses any chest pain or significant shortness of breath. The patient is significantly weakened due to his illness and staying in bed. The last few days. The goal today is to improve his physical endurance with physical therapy. We will monitor his heart rate and adjust medications and if needed add new medications to control his rate. The patient remains on Coumadin. At this point, discharge or the next few days. Assuming rate is controlled and patient hasbetter endurance. 04/16:patient seen and examined. No acute overnight events, the patient has no new complaints. He feels he is getting stronger slowly. His activity and ambulation is increasing. He still remains in A. fib with RVR, we started him on Cardizem at 120 mg last night, the patient heart rates to 110 this morning, will increase the dose to 240 this night. Give him additional 60 mg by mouth short-acting Cardizem today. The patient had low blood glucose values this morning, remained asymptomatic. He is on a very high-dose of insulin, he is on 240 units of insulin 70/30 975/25)in the morning.he is also taking 140 units of Lantus at bedtime. He takes glipizide as well as metformin twice a day. Yesterday, we only gave him 140 units of his morning insulin and did not give him any Lantus at night. Continue to take his oral medications. His glucose despite this was low this morning. The patient is tolerating by mouth well and is eating a bit percent of his meals. I have held his morning insulin as well as his evening insulin, will continue with by mouth medications and cover him with high-dose sliding scale insulin. The patient remains hemodynamically stable, is ambulatory only issue is the heart rate, which is intermittently elevated. He safe to be monitored on telemetry on a regular floor. Anticipate discharge to home tomorrow if the patient's heart rate is well controlled. Pertinent ROS: Denies headache, dizziness Denies chest pain, palpitations Denies cough or shortness of breath Denies abdominal pain, nausea or vomiting. - Constitutional Vitals: Vital Signs Temp Pulse Resp BP Pulse Ox 97.4 F 99 H 20 138/91 99 04/16/17 12:00 04/16/17 13:41 04/16/17 13:41 04/16/17 12:00 04/16/17 12:00 Period Temp Pulse Resp BP Sys/Rebolledo Pulse Ox Last 24 Hr 97.1 F-97.8 F 99-113 18-22 119-139/73-91 98-99 Intake and Output 04/16/17 04/16/17 04/16/17 05:59 13:59 21:59 Intake Total 550 / 550 1979 Output Total 1051 / 1051 2800 / 2800 Balance -501 / -501 -820 / -820 Intake & Output: Intake & Output 04/16/17 04/16/17 04/16/17 05:59 13:59 21:59 Intake Total 550 / 550 1979 Output Total 1051 / 1051 2800 / 2800 Balance -501 / -501 -820 / -820 Intake: IV 550 / 550 600 / 600 Zosyn 3.375 gm In 50 / 50 100 / 100 Dextrose 5% in Water 50 ml @ 100 mls/hr IV Q6H [facility] Rx#:[id number] Vancomycin 1,500 mg In 500 / 500 500 / 500 Sodium Chloride 0.9% 500 ml @ 333.3 mls/hr IV Q12H [facility] Rx#:[id number] Oral 900 / 900 GI Tube Flush 480 / 480 Output: Urine Catheter Amount 600 / 600 Void Amount 451 / 451 2800 / 2800 Other: Meal Lunch Percent of Meal Consumed 100% Feeding Ability Independent # Voids 1 1 # Bowel Movements 1 Exam: Constitutional; Afebrile, cooperative, alert, not in distress. Eyes- No icterus, , No periorbital swelling Ears- Ext ear normal, hearing normal to conversation. Neck- Midline trachea, supple Respiratory system: Air Entry equal on both sides, No crackles or wheezing, no rhonchi. CVS- Rate rhythm regular, S1,S2 heard, no gallop, no rub. Abdomen- Soft nontender abdomen, no organomegaly, no tenderness, no guarding or rigidity, [employer]- AOOx3, moving all extremities, no gross focal deficit noted. Medical - PN: Obj Da - Labs CBC & Chem 7: 04/16/17 04:05 04/16/17 04:05 Labs: Abnormal Lab Results 04/16/17 04/16/17 04/16/17 08:40 04:05 04:05 RBC Hgb Hct RDW Gran % Lymph % (Auto) Gran # Lymph # (Auto) PT 20.0 H INR 1.6 H Carbon Dioxide BUN Glucose Calcium Phosphorus Magnesium GGT 118 H AST 71 H ALT 78 H Lactate Dehydrogenase 274 H Total Creatine Kinase Albumin Triglycerides 248 H Vancomycin Trough 18.6 H 04/16/17 04/15/17 04/15/17 04:05 04:04 04:04 RBC 4.25 L Hgb 12.0 L Hct 35.9 L RDW 14.7 H Gran % Lymph % (Auto) Gran # Lymph # (Auto) PT 17.7 H INR 1.4 H Carbon Dioxide BUN 28 H Glucose 44 L Calcium 7.9 L Phosphorus 2.1 L Magnesium GGT 96 H AST 69 H ALT 63 H Lactate Dehydrogenase 321 H Total Creatine Kinase Albumin Triglycerides 214 H Vancomycin Trough 04/15/17 04/14/17 04/14/17 04:04 04:00 04:00 RBC 4.10 L Hgb 11.4 L Hct 34.6 L RDW 14.7 H Gran % 84.7 H Lymph % (Auto) 12.5 L Gran # 8.5 H Lymph # (Auto) 1.2 L PT 15.9 H INR 1.2 H Carbon Dioxide BUN Glucose Calcium Phosphorus Magnesium GGT AST ALT Lactate Dehydrogenase Total Creatine Kinase 637 H Albumin Triglycerides Vancomycin Trough 04/14/17 04/14/17 04:00 04:00 RBC 3.96 L Hgb 11.2 L Hct 33.1 L RDW 14.8 H Gran % 89.5 H Lymph % (Auto) 6.8 L Gran # Lymph # (Auto) 0.6 L PT INR Carbon Dioxide 20 L BUN 28 H Glucose 270 H Calcium 7.6 L Phosphorus 1.8 L Magnesium 2.6 H GGT 69 H AST 41 H ALT 50 H Lactate Dehydrogenase 292 H Total Creatine Kinase Albumin 3.0 L Triglycerides 216 H Vancomycin Trough Meds: Medications Hydrocodone Bitart/Acetaminophen (Terry 10/325mg) 1.5 tab PO Q4-6HP PRN PRN Reason: Pain Last Admin: 04/15/17 17:32 Dose: 1.5 tab Allopurinol (Zyloprim) 50 mg PO DAILY [facility] Last Admin: 04/16/17 09:19 Dose: 50 mg Aspirin (Aspirin) 81 mg PO DAILY [facility] Last Admin: 04/16/17 09:18 Dose: 81 mg Dextrose (Dextrose 50%) 0 ml IV UD PRN PRN Reason: Hypoglycemia Diagnostic Test (Pha) (Accu-Chek) 1 each FS ACHS [facility] Last Admin: 04/16/17 11:36 Dose: 1 each Diltiazem HCl (Cardizem) 30 mg PO Q6 [facility] Stop: 04/16/17 18:01 Last Admin: 04/16/17 11:37 Dose: 30 mg Diltiazem HCl (Cardizem Cd) 240 mg PO HS [facility] Doxycycline Hyclate (Doxycycline Hyclate) 100 mg PO BID [facility] Last Admin: 04/16/17 09:26 Dose: 100 mg Enoxaparin Sodium (Lovenox) 30 mg SQ BID [facility] Last Admin: 04/16/17 09:25 Dose: 30 mg Furosemide (Lasix) 80 mg PO QDAY [facility] Last Admin: 04/16/17 09:18 Dose: 80 mg Glipizide (Glucotrol Xl) 10 mg PO BIDAC [facility] Last Admin: 04/16/17 07:59 Dose: 10 mg Glucose (Insta-Glucose) 15 gm PO PRN PRN PRN Reason: Hypoglycemia Guaifenesin (Robitussin Dm) 10 ml PO Q4HP PRN PRN Reason: Cough Last Admin: 04/16/17 09:44 Dose: 10 ml Heparin Sodium (Porcine) (Heparin Flush) 2 ml IV Q12 [facility] Last Admin: 04/16/17 08:45 Dose: 2 ml Hydrochlorothiazide (Oretic) 25 mg PO DAILY [facility] Last Admin: 04/16/17 09:24 Dose: 25 mg Hydromorphone HCl (Dilaudid) 1 mg IV Q4HP PRN PRN Reason: Pain Last Admin: 04/15/17 02:23 Dose: 1 mg Piperacillin Sod/Tazobactam (Sod 3.375 gm/ Dextrose) 50 mls @ 100 mls/hr IV Q6H [facility] Last Infusion: 04/16/17 12:30 Dose: Infused Vancomycin HCl 1,500 mg/ (Sodium Chloride) 500 mls @ 333.3 mls/hr IV Q12H [facility] Last Infusion: 04/16/17 11:45 Dose: Infused Insulin Human Lispro (Humalog) 0 unit SQ ACHS [facility] PRN Reason: Protocol Last Admin: 04/16/17 11:37 Dose: 6 unit Ipratropium [place] (Atrovent) 2.5 ml NEB Q6HRT [facility] Last Admin: 04/16/17 13:37 Dose: 2.5 ml Levalbuterol HCl (Xopenex) 1.25 mg NEB Q6HRT [facility] Last Admin: 04/16/17 09:42 Dose: Not Given Losartan Potassium (Cozaar) 100 mg PO DAILY [facility] Last Admin: 04/16/17 09:24 Dose: 100 mg Magnesium Hydroxide (Milk Of Magnesia) 30 ml PO DAILYP PRN PRN Reason: Constipation Magnesium Oxide (Magnesium Oxide) 400 mg PO [facility] Last Admin: 04/15/17 21:53 Dose: 400 mg [facility] Last Admin: 04/16/17 07:59 Dose: 1,000 mg Metoclopramide HCl (Reglan) 5 mg IV Q6HP PRN PRN Reason: Nausea And Vomiting Metoprolol Tartrate (Lopressor) 150 mg PO BID [facility] Last Admin: 04/16/17 09:24 Dose: 150 mg Naloxone HCl (Narcan) 0.1 mg IV Q2MIN PRN PRN Reason: Opiate Reversal Nitroglycerin (Nitrostat) 0.4 mg SL Q5MINP PRN PRN Reason: Chest Pain Ondansetron HCl (Zofran) 4 mg IV Q4HP PRN PRN Reason: Nausea And Vomiting Last Admin: 04/11/17 17:34 Dose: 4 mg Pantoprazole Sodium (Protonix) 40 mg PO QAMID [facility] Last Admin: 04/16/17 08:39 Dose: 40 mg Alpha Lipoic Acid (200 Mg Capsule) 1 dose PO [facility] Last Admin: 04/15/17 22:32 Dose: Not Given [facility]) [facility] Last Admin: 04/16/17 07:59 Dose: 40 mg Sodium Chloride (Saline Flush) 10 ml IV UD PRN PRN Reason: FLUSH Last Admin: 04/16/17 10:03 Dose: 10 ml Vancomycin HCl (Vancomycin Per Pharmacy) 1 order IV UD [facility] Vitamin D (Vitamin D3) 1,000 unit PO DAILY [facility] Last Admin: 04/16/17 09:18 Dose: 1,000 unit Warfarin Sodium (Coumadin Per Pharmacy) 1 order PO DAILY@1400 [facility] Last Admin: 04/15/17 15:02 Dose: Not Given Medical - PN: A/P - Time Spent With Patient Total time spent is greater than 50% in coordination of care (as documented) at patient's floor/unit and/or counseling patient: - Narrative A/P Narrative: A/P Fever/ Sepsis/ Cellulitis/ Gastroenteritis: Etiology of fever is a bit unclear at this time, but this has resolved now. likely some viral illness, which self resolved or was zoonotic illness which is responding to antibiotics He remains on vancomycin and Zosyn as well as doxycycline. He is without any fever now. Plan to continue zosyn and vanco till tomorrow, and will discharge him home with 2 more weeks of po doxycycline. Reactive Airway Disease: , no wheezing today, no h/o copd as per pt, patient had bout of wheezing and shortness of breath yesterday which responded to do. We 'll continue present management. xoponex and ipratropium. and prednisone. Acute hypoxic resp failure: due to airway disease and CHF exacerbation. resolved , d/c bipap Afib with RVR: No h/o afib in past, HR improving, on coumadin, can be switched to eliquis by PCP. dose of, metoprolol is now at 150 mg twice a day on cardizem 120mg XR given last night, HR still elevated, add short acting 30po x 2 and increase the dose to 240mg SR tonight. Stop Amlodipine. INR 1.6 Rodent exposure: Leptospirosis and hanta virus sent, rickettsia dna probe ordered. On doxycycline for now,results pending Acute Kidney Failure: Creat is 1.0, stable monitor, DM: patient's home dose of diabetes medications resumed and the patient became hypoglycemic. Plan to not give any long acting insulin, and just use short acting insulin to cover for pre meal supplements. 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 CAD: h/o ID in the past, resume home meds, no chest pain reported. DVT heparin sq, will d/c once INR is therapeutic. Diet Carb restricted Full code. Medical - PN: Qual - VTE Deep Vein Thrombosis/Pulmonary Embolism Present on Admission: No
[2017-04-16] MEDS ORDERED: METOCLOPRAMIDE 10 MG/2 ML VIAL IV PRN (14:36)
[2017-04-16] MEDS ORDERED: HYDROmorphone 2 MG/ML SYRINGE IV PRN (14:36)
[2017-04-16] MEDS ORDERED: 0.9 % SODIUM CHLORIDE 10 ML SYRINGE IV PRN (14:36)
[2017-04-16] MEDS ORDERED: HYDROcodone/APAP 10/325MG TABLET PO PRN (14:36)
[2017-04-16] MEDS ORDERED: DEXTROSE 31 GM ORAL.SUSP PO PRN (14:36)
[2017-04-16] MEDS ORDERED: ONDANSETRON 4 MG/2 ML VIAL IV PRN (14:36)
[2017-04-16] MEDS ORDERED: MAGNESIUM HYDROXIDE 30 ML ORAL.SUSP PO PRN (14:36)
[2017-04-16] MEDS ORDERED: VANCOMYCIN PER PHARMACY IV SCH (14:36)
[2017-04-16] MEDS ORDERED: DEXTROSE 50% 50 ML VIAL IV PRN (14:36)
[2017-04-16] MEDS ORDERED: guaiFENesin/DEXTROMETHORPHAN ORAL SOL PO PRN (14:36)
[2017-04-16] MEDS ORDERED: NALOXONE HCL 0.4 MG/ML VIAL IV PRN (14:36)
[2017-04-16] MEDS ORDERED: NITROGLYCERIN 0.4 MG TAB.SUBL SL PRN (14:36)
[2017-04-16] MEDS: PANTOPRAZOLE 40 MG VIAL IV SCH (15:38)
[2017-04-16] MEDS ORDERED: ALPHA LIPOIC ACID 200 MG PO SCH (21:00)
[2017-04-16] MEDS ORDERED: DILTIAZEM 120 MG CAP.XL.24H PO SCH ×2 (21:00)
[2017-04-16] MEDS ORDERED: MAGNESIUM OXIDE 400 MG TABLET PO SCH (21:00)
[2017-04-17] MEDS: PIPERACILLIN SODIUM/TAZOBACTAM 3.375 GM in DEXTROSE 5% IN WATER 50 ML IV SCH (05:12)
[2017-04-17 06:17] LABS: Basophils # (Auto) 0 K/mcL (0.0-0.3); Basophils % (Auto) 0.2 % (0.0-2.0); Eosinophils # (Auto) 0.3 K/mcL (0.0-0.7); Eosinophils % (Auto) 2.5 % (0.0-7.0); Granulocytes % (Auto) 74.2 % (38.0-78.0); Lymphocytes # (Auto) 1.9 K/mcL (1.5-4.8); Lymphocytes % (Auto) 18.4 % (15.5-49.0); Mean Cell Volume 87.9 fL (80.0-100.0); Mean Corpuscular HGB Conc 32.7 g/dL (31.0-36.0); Mean Corpuscular Hemoglobin 28.8 pg (26.0-34.0); Monocytes # (Auto) 0.5 K/mcL (0.1-0.9); Monocytes % (Auto) 4.7 % (1.0-12.0); Platelet Count 289 K/mcL (140-440); RBC 4.47 M/mcL (4.50-5.90)
[2017-04-17 06:50] LABS: ALT/SGPT 74 U/l (0-40); Albumin 3.2 gm/dL (3.2-5.2); Albumin/Globulin Ratio 1.1 (1.0-2.3); Alkaline Phosphatase 55 U/L (39-117); Bilirubin,Direct < 0.2 mg/dL (0.0-0.3); Blood Urea Nitrogen 25 mg/dl (8-23); Gamma Glutamyl Transpeptidase 110 U/L (8-61)
[2017-04-17] MEDS: glipiZIDE 5 MG TAB.XL.24H PO SCH (07:30)
[2017-04-17] MEDS ORDERED: PANTOPRAZOLE 40 MG PACKET PO SCH (07:30)
[2017-04-17] MEDS: metFORMIN 500 MG TABLET PO SCH (07:31)
[2017-04-17] MEDS: INSULIN LISPRO 1 UNIT/0.01 ML UNIT SQ SCH ×2 (07:34→12:16)
[2017-04-17] MEDS: IPRATROPIUM 2.5 ML AMPUL.NEB NEB SCH (07:35)
[2017-04-17] MEDS: LEVALBUTEROL 0.63 MG/3 ML AMPUL.NEB NEB SCH (07:36)
[2017-04-17] MEDS ORDERED: predniSONE 20 MG TABLET PO SCH (08:00)
[2017-04-17] MEDS: METOPROLOL TARTRATE 50 MG TABLET PO SCH (08:23)
[2017-04-17] MEDS ORDERED: VITAMIN D3 1,000 UNIT TABLET PO SCH (09:00)
[2017-04-17] MEDS ORDERED: LOSARTAN 50 MG TABLET PO SCH (09:00)
[2017-04-17] MEDS ORDERED: HYDROCHLOROTHIAZIDE 25 MG TABLET PO SCH (09:00)
[2017-04-17] MEDS ORDERED: ALLOPURINOL 100 MG TABLET PO SCH (09:00)
[2017-04-17] MEDS ORDERED: ASPIRIN 81 MG TAB.CHEW PO SCH (09:00)
[2017-04-17] MEDS ORDERED: FUROSEMIDE 80 MG TABLET PO SCH (09:00)
[2017-04-17] MEDS: VANCOMYCIN 1,500 MG in 0.9 % SODIUM CHLORIDE 500 ML IV SCH (09:31)
[2017-04-17] MEDS: ENOXAPARIN 30 MG/0.3 ML SYRINGE SQ SCH (09:32)
--- NOTE | 2017-04-17 11:06 | Discharge Summary ---
Medical - DS: Prov Patient information: Note initiated : 04/17/17 at 11:00 am Service Date, if different from initiated Date: [] Patient: Ranulfo Molina 71 y/o M admitted on 04/11/17 for Fever, Sepsis, Cellulitis, Gastroenteritis. Chief Complaint: [] Date of admission: 04/11/17 01:15 Discharge date: 04/17/17 Primary care physician: Jeffery Meyer Admitting clinician: Awilda Montenegro Discharging clinician: Awilda Montenegro Medical - DS: Meds - Discharge Medications Prescriptions: Diltiazem [Cardizem Cd] 240 mg PO HS #30 cap.xl.24h Doxycycline Hyclate 100 mg PO BID #28 guaiFENesin/DEXTROMETHORPHAN [Robitussin Dm] 10 ml PO Q4HP PRN #240 ml PRN Reason: Cough Metoprolol Tartrate [Lopressor] 150 mg PO BID #180 tablet predniSONE [Prednisone] 40 mg PO QAC #6 tablet Warfarin Sodium [Jantoven] 4 mg PO DAILY #30 tablet Active and Home Medications: Home Medications allopurinol 300 mg tablet 150 mg PO QDAY tab 04/03/15 [History Confirmed Last Taken Unknown] amlodipine 10 mg tablet 10 mg PO QDAY tab 04/03/15 [History Confirmed 04/11/17 Last Taken Unknown] aspirin 81 mg tablet,delayed release 81 mg PO QDAY tab 04/03/15 [History Confirmed 04/11/17 Last Taken Unknown] cholecalciferol (vitamin D3) 1,000 unit capsule 1,000 unit PO QDAY cap [History Confirmed 04/11/17 Last Taken Unknown] fluocinonide 0.05 % topical cream 1 applic TOPICAL BIDP PRN g 04/03/15 [ History Confirmed 04/11/17 Last Taken Unknown] losartan 100 mg tablet 100 mg PO QDAY tab 04/03/15 [History Confirmed 04/11/17 Last Taken Unknown] hydrochlorothiazide 12.5 mg tablet 25 mg PO QDAY 07/28/16 [History Confirmed 02/20 Last Taken Unknown] omeprazole 20 mg capsule,delayed release 20 mg PO ACB cap 07/28/16 [History Confirmed 04/11/17 Last Taken Unknown] furosemide 80 mg tablet 80 mg PO QDAY 90 Days 11/02/16 [Rx Confirmed 04/11/17 Last Taken Unknown] Levemir 100 unit/mL subcutaneous solution 150 unit SUB-Q QPM #50 ml NS 01/27/17 [Rx Confirmed 04/11/17 Last Taken Unknown] Alpha Lipoic Acid 200 mg PO HS 04/11/17 [History Confirmed 04/11/17 Last Taken Unknown] Atorvastatin [Lipitor] 40 mg PO DAILY 04/11/17 [History Confirmed 04/11/17 Last Taken Unknown] Diclofenac Sodium [Voltaren] 1 applic TOPICAL TID 04/11/17 [History Confirmed Last Taken Unknown] HYDROcodone/ACETAMINOPHEN [[place]orcet Hd 10-325 mg Tablet] 1 tab PO QIDP PRN [History Confirmed 04/11/17 Last Taken Unknown] Insulin 70/30, Human [Novolin 70/30] 200 unit SUB-Q QAM 04/11/17 [History Confirmed 04/11/17 Last Taken Unknown] Magnesium Oxide [Magnesium] 400 mg PO HS 04/11/17 [History Confirmed 04/11/17 Last Taken Unknown] Metoprolol Succinate [Toprol Xl] 50 mg PO BID 04/11/17 [History Confirmed Last Taken Unknown] Metoprolol Tartrate [Lopressor] 50 mg PO BID 04/11/17 [History Confirmed Last Taken Unknown] Multivit,Ther Iron,Ca,FA & Min [Multivitamin W/Minerals] 1 tab PO DAILY [History Confirmed 04/11/17 Last Taken Unknown] Nitroglycerin 0.4 mg SUBLINGUAL Q5MINP PRN 04/11/17 [History Confirmed 04/11/17 Last Taken Unknown] [place]-3S/Dha/Epa/Fish Oil [Fish Oil 1,200 mg Softgel] 2 each PO DAILY 04/11/17 [ History Confirmed 04/11/17 Last Taken Unknown] Vitamin E 1,000 unit PO HS 04/11/17 [History Confirmed 04/11/17 Last Taken Unknown] Zinc 50 mg PO DAILY 04/11/17 [History Confirmed 04/11/17 Last Taken Unknown] glipiZIDE [Glipizide ER] 10 mg PO BID 04/11/17 [History Confirmed 04/11/17 Last Taken Unknown] levOCARNitine TARTRATE [l-Carnitine] 500 mg PO HS 04/11/17 [History Confirmed Last Taken Unknown] metFORMIN HCL [Glucophage] 1,000 mg PO BIDCC 04/11/17 [History Confirmed Last Taken Unknown] Medical - DS: Hosp Hospital course: Mr. Molina is a 71 year old Male with h/o DM, CAD and other medical issues presented to the ER after not being well for nearly 10 days to 2 weeks. His partner was at beside. The patient notes that he was at a family reunion and since that time he has not been feeling well, he has been fatigued and tired, having myalgia and poor appetite. The patient noticed some fever and chills going on from this wednesday, Fever is waxing and waning, associated with chills and rigors with some sweating, so much so that the patient is unable to perform his functions. He noted shortness of breath, nausea and abdominal pain which is associated with the fever. The patient denies any sick contacts, has chr cough, but no change in pattern, no urinary complaints. He was in [facility] day before ER visit where he was evaluated in the [facility] ER, he notes that they evaluated him and discharged him without any specific diagnosis. on admission his fever was 103.5, he had taken some ibuprofen and tylenol., as his condition was worsening they brought him to the hospital. He was admitted to the hospital with possible sepsis etiology undertain. Sepsis/ Fever: Etiology uncertain, CXR neg, UA neg, Blood and urine cx neg, he did have a red and warm neck to touch, its likely that there could have been possible cellulitis. Given his recent exposure to rodent and his family reunion in the [facility], zoonotic diseases were also under consideration. He was treated with 7 days of vanco and zosy, he was also started on doxycyline. The patient responded to treatment very well. He will continue 14 days of doxycline after discharge. His workup for rickettsia is neg, peripheral smear for parasites neg , blood cx was neg, only one bottle for GPC which was determined as contaminant. His hanta virus and leptospirosis is pending, his path did not show any acute leukaemia, and jake and anca was negative. csf culture negative. CT chest abdo and pelvis neg for any source. no cellulitis reported on the CT chest in the neck region. Reactive airway disease: needed steroids and duonebs while inpatient on discharge is breathing well without any wheezing afib with RVR: The patient developed afib while in the hospital and remained in afib, given his history he needs to be anticoagulated, Major risks benefits of the medication discussed, all questions answered with regards to the new anticoagulation. Coumadin started, at discharge his INR is 2.0 on 5mg of coumadin. he will be discharged on 4 mg once daily and will need to follow up with PCP in 3 days for INR check, echo done shows moderate dilated lv, but preserved ejection fraction. DM: pt has very high insulin needs. His glucose was uptrending once he resumed his diet, but on resumption of his home dose he remained on the lower side. Its likely that the patient diet at home is very high in carbohydrates to warrant such high doses insulin 70/30 of 240 units AM and levemir 140 units. he also takes metfomrin and glipizide . I have advised him to check his glucose twice daily, be watchful of what he eats , he will only take levemir 30 units at bed time for now and then slowly uptitrate his insulin dose depending on his blood glucose. HTN: he will resume his home meds, except the change in following , d/c hctz and amlodipine as we are increasing the dose of metoprolol to 150mg bid and adding cardizem 240qhs to control his HR, BP at discharge is normal. The patient is fairly weak from his hosiptal stay, but wants to go home, no other major changes done to his home regime except as mentioned above. Discharge diagnosis: fever/ sepsis/ Afib/ - Time Spent with Patient Total time spent providing and/or coordinating discharge services: Greater than 30 minutes Medical - DS: Exam - Constitutional Vitals: Vital Signs Temp Pulse Pulse Resp BP BP Pulse Ox 04/17/17 08:41 106/70 04/17/17 07:37 77 16 98 04/17/17 07:21 97.5 F 22 98/60 99 04/17/17 04:41 97.9 F 86 14 103/68 97 04/16/17 23:02 98.6 F 90 18 112/70 96 04/16/17 20:21 99 H 20 04/16/17 20:00 96.8 F L 95 H 20 123/83 97 04/16/17 13:41 99 H 20 04/16/17 12:00 97.4 F 20 138/91 99 Intake and Output 04/16/17 04/17/17 04/17/17 21:59 05:59 13:59 Intake Total 830 / 830 290 / 290 Output Total 1400 / 1400 Balance 830 / 830 -1110 / -1110 Intake: IV 550 / 550 50 / 50 Zosyn 3.375 gm In 50 / 50 50 / 50 Dextrose 5% in Water 50 ml @ 100 mls/hr IV Q6H ALDO Rx#:[id number] Vancomycin 1,500 mg In 500 / 500 Sodium Chloride 0.9% 500 ml @ 333.3 mls/hr IV Q12H ALDO Rx#:[id number] Oral 280 / 280 240 / 240 Output: Void Amount 1400 / 1400 Other: Meal Ice cream Percent of Meal Consumed 100% Feeding Ability Independent # Voids 1 Weight 298 lb 8 oz Additional comments: Constitutional; Afebrile, cooperative, alert, not in distress. Eyes- No icterus, , No periorbital swelling Ears- Ext ear normal, hearing normal to conversation. Neck- Midline trachea, supple Respiratory system: Air Entry equal on both sides, No crackles or wheezing, no rhonchi. CVS- Rate rhythm irregular, S1,S2 heard, no gallop, no rub. Abdomen- Soft nontender abdomen, no organomegaly, no tenderness, no guarding or rigidity, LEARNING DEVELOPER- AOOx3, moving all extremities, no gross focal deficit noted. Medical - DS: Data Labs on day of discharge: Labs from last 24 hours 04/17/17 04/17/17 04/17/17 04:30 04:30 04:30 WBC 10.5 RBC 4.47 L Hgb 12.9 L Hct 39.3 L MCV 87.9 MCH 28.8 MCHC 32.7 RDW 16.0 H Plt Count 289 MPV 8.2 Gran % 74.2 Lymph % (Auto) 18.4 [place] % (Auto) 4.7 Eos % (Auto) 2.5 Baso % (Auto) 0.2 Gran # 7.8 Lymph # (Auto) 1.9 [place] # (Auto) 0.5 Eos # (Auto) 0.3 Baso # (Auto) 0 PT 23.5 H INR 2.0 H Sodium 137 Potassium 3.7 Chloride 97 Carbon Dioxide 27 Anion Gap 13.0 BUN 25 H Creatinine 1.1 GFR Calculation 68 Glucose 153 H Uric Acid 5.0 Calcium 9.1 Phosphorus 4.5 Magnesium 2.0 Total Bilirubin 0.3 Direct Bilirubin < 0.2 GGT 110 H AST 47 H ALT 74 H Alkaline Phosphatase 55 Lactate Dehydrogenase 238 Total Protein 6.0 Albumin 3.2 Globulin 2.8 Albumin/Globulin Ratio 1.1 Triglycerides 258 H Medical - DS: A/P - Patient/Caregiver Discharge Instructions Activity: increase activity as tolerated Diet: Cardiac, Consistent Carbohydrate Additional Instructions: Take medications as prescribed your Hydrochlorothiazide and amlodipine has been stopped, These are medications you took for blood pressure You have been started on Diltazem for rate control, your dose of metoprolol has been changed and a new prescription is sent for same. You have been started on Coumadin which is a blood thinner, you need to follow up with your PCP for blood work. You need to take glipizide and metformin 20-30 mins before a meal. Take only 30 units of levemir at bedtime for now given that your glucose values are reasonably well controlled. Increase the dose by 10 units if your morning glucose is > 150 mg. Talk to your Endocrinoloigst or PCP with regards to further titration of insulin , Its seems you need to monitor your diet very carefully as while in the hospital your glucose control did not warrant this high dose of insulin. Follow up with Dr. Meyer. Contact the office on Thursday 04/19 to schedule. Return to ER for shortness of breath, nausea and/or vomiting, chills, fever, unable to go to the bathroom Prescriptions: Diltiazem [Cardizem Cd] 240 mg PO HS #30 cap.xl.24h Doxycycline Hyclate 100 mg PO BID #28 guaiFENesin/DEXTROMETHORPHAN [Robitussin Dm] 10 ml PO Q4HP PRN #240 ml PRN Reason: Cough Metoprolol Tartrate [Lopressor] 150 mg PO BID #180 tablet predniSONE [Prednisone] 40 mg PO [facility] #6 tablet Warfarin Sodium [Jantoven] 4 mg PO DAILY #30 tablet - Follow up Plan Follow up with: Jeffery Meyer MD [Primary Care Provider] - (Dr. Meyer's office will contact you on Wednesday04/19/17 to schedule a post hospital appointment. If you do not hear from them by Wednesday, please call them to schedule .) Disposition: Home Health Service Prognosis: Fair Rehab Potential: Fair I certify that the patient requires SNF services: No Overall status at discharge: patient is progressing back to baseline Medical - DS: Qual - VTE Deep Vein Thrombosis/Pulmonary Embolism Present on Admission: No
[2017-04-17] MEDS: DOXYCYCLINE HYCLATE 100 MG TABLET.ORL PO SCH (11:17)
[2017-04-17] MEDS ORDERED: WARFARIN 5 MG TABLET PO ONE (14:00)
[2017-04-21 11:45] LABS: Measles IGG AB CSF <1:64; Measles IGM AB CSF <1:1
== END 2017-04-17 13:15 | disposition home health service (06) | DRG 871 ==
LOC: ED 20:35 → ICU 04-11 01:15 → MEDSUR 04-16 14:05
PROVIDERS: ADMIT Internal Medicine; ATTEND Internal Medicine

== ENCOUNTER 2023-09-06 04:25 | Inpatient (IN) ==
[2023-09-06] MEDS ORDERED: ACETAMINOPHEN 325 MG TABLET PO ONE (05:03)
[2023-09-06] MEDS ORDERED: 0.9 % SODIUM CHLORIDE 500 ML IV ONE (05:07)
[2023-09-06] MEDS ORDERED: REMDESIVIR 200 MG in 0.9 % SODIUM CHLORIDE 250 ML IV ONE (05:07)
[2023-09-06 05:36] LABS: Basophils # (Auto) 0.04 K/mcL (0.00-0.30); Basophils % (Auto) 0.4 % (0.0-2.0); Eosinophils % (Auto) 1.1 % (0.0-7.0); Hematocrit 42.6 % (40.1-51.0); Hemoglobin 14.4 g/dL (13.7-17.5); Lymphocytes # (Auto) 1.55 K/mcL (1.50-4.80); Lymphocytes % (Auto) 16.6 % (15.5-49.0); Mean Cell Volume 89.3 fL (80.0-100.0); Mean Corpuscular HGB Conc 33.8 g/dL (31.0-36.0); Mean Platelet Volume 10.2 fL (8.8-12.5); Monocytes # (Auto) 0.94 K/mcL (0.10-0.90); Neutrophils % (Auto) 71.7 % (38.0-78.0); Platelet Count 136 K/mcL (140-440); RBC 4.77 M/mcL (4.63-6.08); WBC 9.4 K/mcL (4.5-11.0)
[2023-09-06 06:40] LABS: INR 2.1 (0.9-1.1); Prothrombin Time 24.4 sec (11.9-14.5)
[2023-09-06 11:00] LABS: Appearance,Urine Clear (Clear); Bacteria,Urine 0 /hpf (0); Bilirubin,Urine Negative (Negative); Color,Urine Yellow; Culture Indicated,Urine No; Glucose,Urine (UA) 250 mg/dL (Negative); Ketones,Urine Negative (Negative); Leukocyte Esterase,Urine Negative /uL (Negative); Nitrate,Urine Negative (Negative); PH,Urine 6.5 (5.0-9.0); Protein,Urine Negative (Negative); Specific Gravity,Urine 1.015 (1.000-1.035); Urine RBC 1 /hpf (0-3); Urine Squamous Epithelial Cell 2 /hpf (0-4); Urine WBC 0 /hpf (0-4); Urobilinogen,Urine Normal
[2023-09-06] MEDS ORDERED: guaiFENesin/DEXTROMETHORPHAN 5ML UD CUP PO PRN (11:19)
[2023-09-06] MEDS ORDERED: traZODone HCL 50 MG TABLET PO PRN (11:19)
[2023-09-06] MEDS ORDERED: DEXTROSE 50% 50 ML VIAL IV PRN (11:19)
[2023-09-06] MEDS ORDERED: ACETAMINOPHEN 325 MG TABLET PO PRN (11:19)
[2023-09-06] MEDS ORDERED: METOPROLOL TARTRATE 5 MG/5 ML VIAL IV PRN (11:19)
[2023-09-06] MEDS ORDERED: DEXTROSE 31 GM ORAL.SUSP PO PRN (11:19)
[2023-09-06] MEDS ORDERED: IPRATROPIUM/ALBUTEROL 3 ML AMPUL.NEB NEB PRN (11:19)
[2023-09-06] MEDS ORDERED: ONDANSETRON 4 MG/2 ML VIAL IV PRN (11:19)
[2023-09-06] MEDS: 0.9 % SODIUM CHLORIDE 1,000 ML IV SCH ×3 (13:05→22:42)
[2023-09-06] MEDS: cefTRIAXone 1 GM VIAL IV SCH (13:07)
[2023-09-06] MEDS: AZITHROMYCIN 500 MG in DEXTROSE 5% IN WATER 250 ML IV SCH (13:08)
[2023-09-06] MEDS: INSULIN LISPRO 1 UNIT/0.01 ML UNIT SQ SCH ×3 (13:13→21:12)
[2023-09-06] MEDS ORDERED: WARFARIN 5 MG TABLET PO SCH ×2 (14:00→15:00)
[2023-09-06] MEDS ORDERED: BENZOCAINE/MENTHOL 1 LOZENGE PO PRN (14:01)
[2023-09-06] MEDS ORDERED: HYDROCODONE/APAP 7.5/325MG TABLET PO PRN ×2 (15:00→17:13)
[2023-09-06] MEDS: 0.9 % SODIUM CHLORIDE 10 ML SYRINGE IV SCH ×2 (16:13→20:56)
[2023-09-06] MEDS ORDERED: NITROGLYCERIN 0.4 MG TAB.SUBL SL PRN (16:16)
[2023-09-06] MEDS ORDERED: tiZANidine 4 MG TABLET PO PRN (16:16)
[2023-09-06] MEDS ORDERED: ACETAMINOPHEN 500 MG TABLET PO PRN (16:16)
[2023-09-06] MEDS ORDERED: INSULIN GLARGINE, HUMAN 1 UNIT/0.01 ML SQ SCH (21:00)
[2023-09-06] MEDS: DOCUSATE SODIUM 100 MG CAPSULE PO SCH (21:11)
[2023-09-06] MEDS: SENNOSIDES 1 TABLET PO SCH (21:13)
[2023-09-06] MEDS: METOPROLOL SUCCINATE 50 MG TAB.XL.24H PO SCH (21:13)
[2023-09-06 23:25] LABS: ALT/SGPT 16 U/L (<40); AST/SGOT 22 U/L (<40); Albumin/Globulin Ratio 1.3 (1.0-2.3); Alkaline Phosphatase 105 U/L (39-117); Bilirubin,Total 0.4 mg/dL (0.1-1.0); Blood Urea Nitrogen 25 mg/dL (8-23); Calcium 9.2 mg/dL (8.6-10.4); Carbon Dioxide 19 mmol/L (22-30); Chloride 102 mmol/L (96-108); Glomerular Filtration Rate 44; Glucose 190 mg/dL (70-105)
[2023-09-07] MEDS: 0.9 % SODIUM CHLORIDE 10 ML SYRINGE IV SCH ×3 (05:35→21:02)
[2023-09-07 07:33] LABS: Basophils # (Auto) 0.03 K/mcL (0.00-0.30); Basophils % (Auto) 0.5 % (0.0-2.0); Eosinophils # (Auto) 0.23 K/mcL (0.00-0.70); Eosinophils % (Auto) 3.9 % (0.0-7.0); Hematocrit 42.1 % (40.1-51.0); Hemoglobin 14.2 g/dL (13.7-17.5); Lymphocytes # (Auto) 1.88 K/mcL (1.50-4.80); Lymphocytes % (Auto) 31.9 % (15.5-49.0); Mean Cell Volume 89.6 fL (80.0-100.0); Mean Corpuscular HGB Conc 33.7 g/dL (31.0-36.0); Mean Platelet Volume 9.9 fL (8.8-12.5); Monocytes % (Auto) 10.2 % (1.0-12.0); Platelet Count 108 K/mcL (140-440); Red Cell Distribution Width 13.9 % (11.5-14.5); WBC 5.9 K/mcL (4.5-11.0)
[2023-09-07 08:07] LABS: ALT/SGPT 8 U/L (<40); AST/SGOT 18 U/L (<40); Albumin 3.4 gm/dL (3.2-5.2); Albumin/Globulin Ratio 1.2 (1.0-2.3); Alkaline Phosphatase 91 U/L (39-117); Bilirubin,Total 0.4 mg/dL (0.1-1.0); Blood Urea Nitrogen 20 mg/dL (8-23); Calcium 8.7 mg/dL (8.6-10.4); Carbon Dioxide 22 mmol/L (22-30); Chloride 105 mmol/L (96-108); Globulin 2.8 gm/dL (2.2-3.7); Glomerular Filtration Rate 64; Glucose 195 mg/dL (70-105)
[2023-09-07] MEDS: INSULIN LISPRO 1 UNIT/0.01 ML UNIT SQ SCH ×4 (08:17→21:01)
[2023-09-07] MEDS: PREGABALIN 25 MG CAPSULE PO SCH (08:39)
[2023-09-07] MEDS: ASPIRIN 81 MG TAB.CHEW PO SCH (08:40)
[2023-09-07] MEDS: METOPROLOL SUCCINATE 50 MG TAB.XL.24H PO SCH ×2 (08:40→21:07)
[2023-09-07] MEDS: MULTIVIT,THER IRON,CA,FA & MIN 1 TABLET PO SCH (08:40)
[2023-09-07] MEDS: POTASSIUM CHLORIDE 20 MEQ TABLET PO SCH (08:40)
[2023-09-07] MEDS: ALLOPURINOL 300 MG TABLET PO SCH (08:41)
[2023-09-07] MEDS: TAMSULOSIN 0.4 MG CAPSULE PO SCH (08:41)
[2023-09-07] MEDS: DOCUSATE SODIUM 100 MG CAPSULE PO SCH ×2 (08:41→21:01)
[2023-09-07] MEDS: cefTRIAXone 1 GM VIAL IV SCH (08:42)
[2023-09-07] MEDS: amLODIPine 5 MG TABLET PO SCH (08:42)
[2023-09-07] MEDS: PANTOPRAZOLE 40 MG TABLET PO SCH (08:42)
[2023-09-07] MEDS ORDERED: INSULIN 70/30, HUMAN 1 UNIT/0.01 ML UNIT SQ SCH (09:00)
[2023-09-07] MEDS ORDERED: WARFARIN 5 MG TABLET PO SCH (09:00)
[2023-09-07 09:11] LABS: Estimated Average Glucose(eAG) 214 mg/dL; Hemoglobin A1C 9.1 % Hgb (4.0-6.0)
[2023-09-07] MEDS: 0.9 % SODIUM CHLORIDE 1,000 ML IV SCH ×3 (09:23→21:06)
[2023-09-07] MEDS: AZITHROMYCIN 500 MG in DEXTROSE 5% IN WATER 250 ML IV SCH (09:24)
[2023-09-07 09:31] LABS: INR 1.7 (0.9-1.1); Prothrombin Time 21.2 sec (11.9-14.5)
[2023-09-07] MEDS: INSULIN, 75/25 NPL/LISPRO 1 UNIT/0.01 ML UNIT SQ SCH (12:20)
[2023-09-07] MEDS ORDERED: WARFARIN 2.5 MG TABLET PO SCH (14:00)
[2023-09-07] MEDS ORDERED: WARFARIN 3 MG TABLET PO ONE (14:00)
[2023-09-07] MEDS ORDERED: INSULIN GLARGINE, HUMAN 1 UNIT/0.01 ML SQ SCH (21:00)
[2023-09-07] MEDS: SENNOSIDES 1 TABLET PO SCH (21:02)
[2023-09-08] MEDS: 0.9 % SODIUM CHLORIDE 1,000 ML IV SCH (04:47)
[2023-09-08] MEDS: 0.9 % SODIUM CHLORIDE 10 ML SYRINGE IV SCH ×3 (04:55→20:48)
[2023-09-08 06:45] LABS: Basophils # (Auto) 0.05 K/mcL (0.00-0.30); Basophils % (Auto) 0.7 % (0.0-2.0); Eosinophils # (Auto) 0.48 K/mcL (0.00-0.70); Eosinophils % (Auto) 6.7 % (0.0-7.0); Hematocrit 42.2 % (40.1-51.0); Hemoglobin 13.9 g/dL (13.7-17.5); Lymphocytes # (Auto) 1.95 K/mcL (1.50-4.80); Lymphocytes % (Auto) 27.2 % (15.5-49.0); Mean Cell Volume 90.8 fL (80.0-100.0); Mean Corpuscular HGB Conc 32.9 g/dL (31.0-36.0); Mean Platelet Volume 9.9 fL (8.8-12.5); Monocytes # (Auto) 0.57 K/mcL (0.10-0.90); Neutrophils % (Auto) 56.8 % (38.0-78.0); Platelet Count 125 K/mcL (140-440); RBC 4.65 M/mcL (4.63-6.08); Red Cell Distribution Width 13.9 % (11.5-14.5); WBC 7.2 K/mcL (4.5-11.0)
[2023-09-08 07:08] LABS: ALT/SGPT < 5 U/L (<40); AST/SGOT 23 U/L (<40); Albumin 3.2 gm/dL (3.2-5.2); Albumin/Globulin Ratio 1.1 (1.0-2.3); Alkaline Phosphatase 80 U/L (39-117); Bilirubin,Total 0.2 mg/dL (0.1-1.0); Blood Urea Nitrogen 19 mg/dL (8-23); Carbon Dioxide 22 mmol/L (22-30); Chloride 107 mmol/L (96-108); Globulin 2.8 gm/dL (2.2-3.7); Glomerular Filtration Rate 64; Glucose 129 mg/dL (70-105)
[2023-09-08] MEDS: INSULIN LISPRO 1 UNIT/0.01 ML UNIT SQ SCH ×4 (07:30→20:48)
[2023-09-08] MEDS: PANTOPRAZOLE 40 MG TABLET PO SCH (07:30)
[2023-09-08 08:09] LABS: INR 1.7 (0.9-1.1); Prothrombin Time 21.4 sec (11.9-14.5)
[2023-09-08] MEDS: ALLOPURINOL 300 MG TABLET PO SCH (08:40)
[2023-09-08] MEDS: INSULIN, 75/25 NPL/LISPRO 1 UNIT/0.01 ML UNIT SQ SCH (08:40)
[2023-09-08] MEDS: cefTRIAXone 1 GM VIAL IV SCH (08:40)
[2023-09-08] MEDS: amLODIPine 5 MG TABLET PO SCH (08:41)
[2023-09-08] MEDS: MULTIVIT,THER IRON,CA,FA & MIN 1 TABLET PO SCH (08:42)
[2023-09-08] MEDS: ASPIRIN 81 MG TAB.CHEW PO SCH (08:42)
[2023-09-08] MEDS: PREGABALIN 25 MG CAPSULE PO SCH (08:42)
[2023-09-08] MEDS: DOCUSATE SODIUM 100 MG CAPSULE PO SCH ×2 (08:42→20:47)
[2023-09-08] MEDS: METOPROLOL SUCCINATE 50 MG TAB.XL.24H PO SCH ×2 (08:42→20:45)
[2023-09-08] MEDS: TAMSULOSIN 0.4 MG CAPSULE PO SCH (08:42)
[2023-09-08] MEDS: POTASSIUM CHLORIDE 20 MEQ TABLET PO SCH (08:42)
[2023-09-08] MEDS: AZITHROMYCIN 500 MG in DEXTROSE 5% IN WATER 250 ML IV SCH (09:43)
[2023-09-08] MEDS: SIMVASTATIN 10 MG TABLET PO SCH (10:33)
[2023-09-08] MEDS ORDERED: WARFARIN 5 MG TABLET PO ONE (14:00)
[2023-09-08] MEDS ORDERED: WARFARIN 5 MG TABLET PO SCH (14:00)
[2023-09-08] MEDS: CILOSTAZOL 100 MG TABLET PO SCH (17:48)
[2023-09-08] MEDS: DOXEPIN 10 MG CAPSULE PO SCH (20:45)
[2023-09-08] MEDS: LOSARTAN 50 MG TABLET PO SCH (20:45)
[2023-09-08] MEDS: INSULIN GLARGINE, HUMAN 1 UNIT/0.01 ML SQ SCH (20:46)
[2023-09-08] MEDS: SENNOSIDES 1 TABLET PO SCH (20:47)
[2023-09-09] MEDS: ASPIRIN 81 MG TAB.CHEW PO SCH (08:32)
[2023-09-09] MEDS: ALLOPURINOL 300 MG TABLET PO SCH (08:32)
[2023-09-09] MEDS: METOPROLOL SUCCINATE 50 MG TAB.XL.24H PO SCH ×2 (08:33→21:49)
[2023-09-09] MEDS: LOSARTAN 50 MG TABLET PO SCH ×2 (08:33→21:49)
[2023-09-09] MEDS: TAMSULOSIN 0.4 MG CAPSULE PO SCH (08:33)
[2023-09-09] MEDS: PREGABALIN 25 MG CAPSULE PO SCH (08:33)
[2023-09-09] MEDS: POTASSIUM CHLORIDE 20 MEQ TABLET PO SCH (08:33)
[2023-09-09] MEDS: MULTIVIT,THER IRON,CA,FA & MIN 1 TABLET PO SCH (08:33)
[2023-09-09] MEDS: amLODIPine 5 MG TABLET PO SCH (08:34)
[2023-09-09] MEDS: PANTOPRAZOLE 40 MG TABLET PO SCH (08:34)
[2023-09-09] MEDS: CILOSTAZOL 100 MG TABLET PO SCH ×2 (08:34→17:04)
[2023-09-09] MEDS: DOCUSATE SODIUM 100 MG CAPSULE PO SCH ×2 (08:35→21:49)
[2023-09-09] MEDS: 0.9 % SODIUM CHLORIDE 10 ML SYRINGE IV SCH ×3 (08:40→21:51)
[2023-09-09] MEDS: INSULIN LISPRO 1 UNIT/0.01 ML UNIT SQ SCH ×4 (08:41→22:23)
[2023-09-09 09:52] LABS: INR 1.9 (0.9-1.1); Prothrombin Time 23.1 sec (11.9-14.5)
[2023-09-09] MEDS: INSULIN, 75/25 NPL/LISPRO 1 UNIT/0.01 ML UNIT SQ SCH (11:51)
[2023-09-09] MEDS: cefTRIAXone 1 GM VIAL IV SCH (11:53)
[2023-09-09] MEDS ORDERED: WARFARIN 5 MG TABLET PO ONE (14:00)
[2023-09-09] MEDS: DOXEPIN 10 MG CAPSULE PO SCH (21:49)
[2023-09-09] MEDS: SENNOSIDES 1 TABLET PO SCH (21:49)
[2023-09-09] MEDS: INSULIN GLARGINE, HUMAN 1 UNIT/0.01 ML SQ SCH (22:22)
[2023-09-10] MEDS: 0.9 % SODIUM CHLORIDE 10 ML SYRINGE IV SCH (05:24)
[2023-09-10] MEDS: INSULIN LISPRO 1 UNIT/0.01 ML UNIT SQ SCH ×2 (08:20→11:53)
[2023-09-10] MEDS: CILOSTAZOL 100 MG TABLET PO SCH (08:20)
[2023-09-10] MEDS: PANTOPRAZOLE 40 MG TABLET PO SCH (08:21)
[2023-09-10] MEDS: MULTIVIT,THER IRON,CA,FA & MIN 1 TABLET PO SCH (09:08)
[2023-09-10] MEDS: INSULIN, 75/25 NPL/LISPRO 1 UNIT/0.01 ML UNIT SQ SCH (09:08)
[2023-09-10] MEDS: TAMSULOSIN 0.4 MG CAPSULE PO SCH (09:08)
[2023-09-10] MEDS: DOCUSATE SODIUM 100 MG CAPSULE PO SCH (09:08)
[2023-09-10] MEDS: amLODIPine 5 MG TABLET PO SCH (09:08)
[2023-09-10] MEDS: ALLOPURINOL 300 MG TABLET PO SCH (09:09)
[2023-09-10] MEDS: METOPROLOL SUCCINATE 50 MG TAB.XL.24H PO SCH (09:09)
[2023-09-10] MEDS: PREGABALIN 25 MG CAPSULE PO SCH (09:10)
[2023-09-10] MEDS: ASPIRIN 81 MG TAB.CHEW PO SCH (09:11)
[2023-09-10] MEDS: LOSARTAN 50 MG TABLET PO SCH (09:11)
[2023-09-10] MEDS: POTASSIUM CHLORIDE 20 MEQ TABLET PO SCH (09:11)
[2023-09-10] MEDS: cefTRIAXone 1 GM VIAL IV SCH (10:43)
[2023-09-10] MEDS ORDERED: SIMVASTATIN 20 MG TABLET PO SCH (11:30)
[2023-09-10] MEDS: SIMVASTATIN 10 MG TABLET PO SCH (11:58)
[2023-09-10 12:15] LABS: INR 1.8 (0.9-1.1); Prothrombin Time 22.1 sec (11.9-14.5)
[2023-09-10] MEDS ORDERED: WARFARIN 3 MG TABLET PO ONE (15:00)
== END 2023-09-10 16:45 | disposition home or self-care (01) | DRG 177 ==
LOC: ED 04:25 → MEDSUR 10:55
PROVIDERS: ADMIT Internal Medicine; ATTEND Internal Medicine